=== PATIENT | male | born 1945 | race Two or more races ===

== ENCOUNTER 2017-04-23 19:38 | Inpatient (IN) | payer MEDICARE, OTHER ==
[~2017-04-23] VITALS: Ht 170.2 cm; Wt 41.7 kg
[2017-04-23 19:38] VITALS: BP 115/57
[2017-04-23] MEDS ORDERED: Albuterol ud Inhalation HHN ONE (20:15)
[2017-04-23] MEDS ORDERED: Ipratropium 0.02% Inh Soln 2.5ml UD HHN ONE (20:15)
--- NOTE | 2017-04-23 21:05 | Emergency Room Report ---
History of Present Illness General Chief Complaint: Upper Respiratory Illness Source: Patient, EMS Present Illness HPI Patient is sent in for productive cough and dyspnea. The patient has dementia and is not a good historian. Post stroke with hemiparesis. Denies pain at this time. States he is thirsty. No dysuria or vomiting (veracity questionable). Allergies: Coded Allergies: No Known Allergies (Unverified , 04/23/17) Patient History Limited by: medical condition Past Medical History: see triage record, CVA/TIA Social History: Reports: smoking - prior Social History Narrative SNF Reviewed Nursing Documentation: PMH: Agreed, PSxH: Agreed Nursing Documentation-PMH Hx Hypertension: Yes Hx Cerebrovascular Accident: Yes - hemiparesis(right side) Review of Systems All Other Systems: limited Physical Exam Vital Signs Date Time Temp Pulse Resp B/P (MAP) Pulse Ox O2 Delivery O2 Flow Rate FiO2 04/23/17 19:34 98.8 96 18 115/57 98 Room Air Sp02 EP Interpretation: reviewed, normal General Appearance: no apparent distress, thin, other - short stature, Chronically Ill Head: normocephalic Eyes: bilateral eye normal inspection, bilateral eye PERRL ENT: moist mucus membranes - poor dentition Neck: supple Respiratory: no respiratory distress, crackles - R base Cardiovascular #1: regular rate, rhythm Cardiovascular #2: 2+ radial (R) Gastrointestinal: normal inspection, normal bowel sounds, non tender, no mass, non-distended Musculoskeletal: back normal, other - atrophy L arm Neurologic: alert, responsive, DTRs symmetric, sensory intact, motor weakness - bilat but worse R Psychiatric: other - some perseveration and possible confabulation, but reports when he has pain and is thirsty Skin: normal inspection, warm/dry Medical Decision Making Diagnostic Impression: Primary Impression: Pneumonia Qualified Codes: J18.1 - Lobar pneumonia, unspecified organism Additional Impressions: Sepsis Qualified Codes: A41.9 - Sepsis, unspecified organism Status post stroke Dementia Qualified Codes: F03.90 - Unspecified dementia without behavioral disturbance ER Course Patient presents with productive cough. Ddx: pneumonia, bronchitis, COPD, sepsis amongst others. Evaluation with EKG, CXR, labs including BC and lactate. EKG without injury. CXR with some COPD and R basilar infiltrate. Labs with elevated WBC, lactate, min elevated glucose. IV hydration ordered and antibiotics. Improved with treatment however, needs continued IV antibiotics and follow for sepsis. Admit med Dr. Brock (Dr. Terry operations advisor.) Laboratory Tests Test 04/23/17 21:28 04/23/17 22:38 04/23/17 23:20 White Blood Count 26.6 K/UL (4.8-10.8) *H Red Blood Count 4.48 M/UL (4.70-6.10) L Hemoglobin 10.5 G/DL (14.2-18.0) L Hematocrit 36.1 % (42.0-52.0) L Mean Corpuscular Volume 81 FL (80-99) Mean Corpuscular Hemoglobin 23.4 PG (27.0-31.0) L Mean Corpuscular Hemoglobin Concent 29.1 G/DL (32.0-36.0) L Red Cell Distribution Width 15.6 % (11.6-14.8) H Platelet Count 456 K/UL (150-450) H Mean Platelet Volume 7.2 FL (6.5-10.1) Neutrophils (%) (Auto) % (45.0-75.0) Lymphocytes (%) (Auto) % (20.0-45.0) Monocytes (%) (Auto) % (1.0-10.0) Eosinophils (%) (Auto) % (0.0-3.0) Basophils (%) (Auto) % (0.0-2.0) Differential Total Cells Counted 100 Neutrophils % (Manual) 78 % (45-75) H Lymphocytes % (Manual) 11 % (20-45) L Monocytes % (Manual) 9 % (1-10) Eosinophils % (Manual) 0 % (0-3) Basophils % (Manual) 0 % (0-2) Band Neutrophils 2 % (0-8) Platelet Estimate Increased H Platelet Morphology Normal Hypochromasia 1+ Anisocytosis 1+ Prothrombin Time 10.0 SEC (9.30-11.50) Prothrombin Time INR 1.0 (0.9-1.1) PTT 33 SEC (23-33) Sodium Level 135 MMOL/L (136-145) L Potassium Level 4.3 MMOL/L (3.5-5.1) Chloride Level 97 MMOL/L (98-107) L Carbon Dioxide Level 28 MMOL/L (21-32) Anion Gap 10 mmol/L (5-15) Blood Urea Nitrogen 29 mg/dL (7-18) H Creatinine 0.9 MG/DL (0.55-1.30) Estimate Glomerular Filtration Rate mL/min (>60) Glucose Level 157 MG/DL (74-106) H Lactic Acid Level 3.00 mmol/L (0.66-2.22) H 2.00 mmol/L (0.66-2.22) Calcium Level 9.5 MG/DL (8.5-10.1) Total Bilirubin 0.3 MG/DL (0.2-1.0) Aspartate Amino Transferase (AST) 64 U/L (15-37) H Alanine Aminotransferase (ALT) 34 U/L (12-78) Alkaline Phosphatase 115 U/L (46-116) Total Creatine Kinase 1998 U/L (26-308) H Troponin I 0.000 ng/mL (0.000-0.056) Pro-B-Type Natriuretic Peptide 1743 pg/mL (0-125) H Total Protein 9.1 G/DL (6.4-8.2) H Albumin 2.6 G/DL (3.4-5.0) L Globulin 6.5 g/dL Albumin/Globulin Ratio 0.4 (1.0-2.7) L Urine Color Yellow Urine Appearance Clear Urine pH 5 (4.5-8.0) Urine Specific [place] 1.020 (1.005-1.035) Urine Protein Negative (NEGATIVE) Urine Glucose (UA) Negative (NEGATIVE) Urine Ketones 1+ (NEGATIVE) H Urine Occult Blood 2+ (NEGATIVE) H Urine Nitrite Negative (NEGATIVE) Urine Bilirubin Negative (NEGATIVE) Urine Urobilinogen 1 MG/DL (0.0-1.0) H Urine Leukocyte Esterase 1+ (NEGATIVE) H Urine RBC 5-10 /HPF (0 - 0) H Urine WBC 0-2 /HPF (0 - 0) Urine Squamous Epithelial Cells Few /LPF (NONE/OCC) Urine Bacteria Few /HPF (NONE) Urine Mucus Few /LPF (NONE/OCC) H Microbiology Date/Time Source Procedure Growth Status 04/23/17 21:28 Nasal Nares Influenza Types A,B Antigen (LUCIO) - Final Complete EKG Diagnostic Results Rate: normal Rhythm: NSR ST Segments: no acute changes Rhythm Strip Diag. Results EP Interpretation: yes Rhythm: NSR, no PVC's, no ectopy Chest X-Ray Diagnostic Results Chest X-Ray Diagnostic Results : Chest X-Ray Ordered: Yes # of Views/Limited/Complete: 1 View Indication: Other EP Interpretation: Yes Interpretation: no effusion, no pneumothorax, other - R infiltrate Impression: Other Electronically Signed by: Haile Richards MD Last Vital Signs Date Time Temp Pulse Resp B/P (MAP) Pulse Ox O2 Delivery O2 Flow Rate FiO2 04/24/17 02:30 98.7 103 14 119/55 97 Room Air 21 Status: improved Disposition: ADMITTED INPATIENT Condition: Serious Haile Richards M.D. Apr 23, 2017 21:05
[2017-04-23 21:38] VITALS: BP 121/55
[2017-04-23 21:53] LABS: HEMATOCRIT 36.1 % (42.0-52.0); HEMOGLOBIN 10.5 G/DL (14.2-18.0); MEAN CORPUSCULAR VOLUME 81 FL (80-99); PLATELET COUNT 456 K/UL (150-450); RED BLOOD COUNT 4.48 M/UL (4.70-6.10); RED CELL DISTRIBUTION WIDTH 15.6 % (11.6-14.8)
[2017-04-23 21:57] LABS: WHITE BLOOD COUNT 26.6 K/UL (4.8-10.8)
[2017-04-23 22:04] LABS: ANION GAP 10 mmol/L (5-15); BLOOD UREA NITROGEN 29 mg/dL (7-18); CALCIUM 9.5 MG/DL (8.5-10.1); CARBON DIOXIDE 28 MMOL/L (21-32); CHLORIDE 97 MMOL/L (98-107); CREATININE 0.9 MG/DL (0.55-1.30); POTASSIUM 4.3 MMOL/L (3.5-5.1); SODIUM 135 MMOL/L (136-145)
[2017-04-23] MEDS ORDERED: cefTRIAXone 1 GM in NS 55 ML IVPB ONE (22:15)
[2017-04-23 22:22] LABS: ALANINE AMINOTRANSFERASE 34 U/L (12-78); ALBUMIN 2.6 G/DL (3.4-5.0); ALBUMIN/GLOBULIN RATIO 0.4 (1.0-2.7); ALKALINE PHOSPHATASE 115 U/L (46-116); ASPARTATE AMINO TRANSFERASE 64 U/L (15-37); BILIRUBIN,TOTAL 0.3 MG/DL (0.2-1.0); CREATINE KINASE 1998 U/L (26-308)
[2017-04-23 23:05] LABS: APPEARANCE,URINE CLEAR; BILIRUBIN, URINE NEGATIVE (NEGATIVE); GLUCOSE, URINE (UA) NEGATIVE (NEGATIVE); KETONES,URINE 1+ (NEGATIVE); LEUKOCYTE ESTERASE ,URINE 1+ (NEGATIVE); NITRITE,URINE NEGATIVE (NEGATIVE); PH,URINE 5 (4.5-8.0); PROTEIN,URINE NEGATIVE (NEGATIVE); UROBILINOGEN,URINE 1 MG/DL (0.0-1.0)
[2017-04-23 23:13] LABS: COLOR,URINE YELLOW
[2017-04-23 23:38] VITALS: BP 109/60
[2017-04-24 01:38] VITALS: BP 111/50
[2017-04-24] MEDS ORDERED: KEFLEX500 MG ORAL (01:39)
[2017-04-24] MEDS ORDERED: PRAVASTATIN SOD20 M1 ORAL (01:39)
[2017-04-24] MEDS ORDERED: ZINC SULFATE220 M1 ORAL (01:39)
[2017-04-24] MEDS ORDERED: ACETAMINOPHEN325 M1 ORAL (01:39)
[2017-04-24] MEDS ORDERED: SEROQUEL25 MG ORAL (01:39)
[2017-04-24] MEDS ORDERED: NORCO 10-325 T1 EACH ORAL (01:39)
[2017-04-24] MEDS ORDERED: TRAZODONE HCL150 MG ORAL (01:39)
[2017-04-24] MEDS ORDERED: ASPIRIN81 MG ORAL (01:39)
[2017-04-24] MEDS ORDERED: AMLODIPINE BESYL5 MG ORAL (01:39)
[2017-04-24] MEDS ORDERED: MULTIVITAMINS1 EAC8 ORAL (01:39)
[2017-04-24] MEDS ORDERED: NAMENDA10 MG ORAL (01:39)
[2017-04-24] MEDS ORDERED: DEPAKOTE ER500 MG ORAL (01:39)
[2017-04-24] MEDS ORDERED: BACLOFEN10 MG ORAL (01:39)
[2017-04-24] MEDS ORDERED: ZYPREXA5 MG ORAL (01:39)
[2017-04-24] MEDS ORDERED: PANTOPRAZOLE SO40 MG ORAL (01:39)
[2017-04-24] MEDS ORDERED: MIRTAZAPINE15 M3 ORAL (01:39)
[2017-04-24] MEDS ORDERED: VITAMIN C500 M1 ORAL (01:39)
[2017-04-24] MEDS ORDERED: DOCUSATE SODIU100 MG ORAL (01:39)
[2017-04-24 04:00] VITALS: BP 125/66
[2017-04-24] MEDS ORDERED: Morphine Sulfate 2mg/ml Inj IM PRN (04:00)
[2017-04-24] MEDS ORDERED: Albuterol/Ipratropium 3ml neb HHN PRN (04:00)
[2017-04-24] MEDS ORDERED: D5 1/2NS 1,000 ML IV SCH (05:00)
[2017-04-24 08:00] VITALS: BP 92/50
[2017-04-24] MEDS: Memantine 10mg tab ORAL SCH (09:28)
[2017-04-24] MEDS: Depakote ER 500mg tab ORAL SCH ×2 (09:28→21:31)
[2017-04-24] MEDS: Aspirin Baby 81mg ORAL SCH (09:28)
[2017-04-24] MEDS: Heparin 5000 units/ml inj SUBQ SCH ×2 (09:29→21:34)
--- NOTE | 2017-04-24 11:19 | Diagnostic Imaging Report ---
Indication: Cough Comparison: None A single view chest radiograph was obtained. Findings: Interstitial opacities demonstrated at the lung bases worse on the left. Bones are osteopenic. Heart size is normal. Aorta is calcified. IMPRESSION: Acute indeterminate interstitial disease of the lungs predominating in the lung bases. Please correlate clinically.
[2017-04-24 12:00] VITALS: BP 97/50
--- NOTE | 2017-04-24 12:00 | History and Physical ---
History of Present Illness General Date patient seen: Apr 24, 2017 Time patient seen: 12:00 Reason for Hospitalization: sepsis, pneumonia Present Illness HPI 72y/o male with pmh of dementia, CVA w/ R hemiparesis, HTN, HLD who presents with SOB and cough. Pt is poor historian. Per report, pt with SOB, congestion and cough for the past few days. No reports of fevers/chills, chest pain, abd pain, n/v/d/c. Pt also noted to be more lethargic and slightly more confused compared to baseline. In ED, pt noted to have WBC 26K and CXR w/ concern for pneumonia. Pt given IVFs , nebs, ceftriaxone and levaquin. Allergies: Coded Allergies: No Known Allergies (Unverified , 04/23/17) Medication History Scheduled Amlodipine Besylate* (Amlodipine Besylate*), 5 MG ORAL DAILY, (Reported) Ascorbic Acid* (Vitamin C*), 500 MG ORAL DAILY, (Reported) Aspirin* (Aspirin*), 81 MG ORAL DAILY, (Reported) Baclofen* (Baclofen*), 10 MG ORAL THREE TIMES A DAY, (Reported) Cephalexin* (Keflex*), 500 MG ORAL QID, (Reported) Divalproex Sodium* (Depakote Er*), 500 MG ORAL EVERY 12 HOURS, (Reported) Docusate Sodium* (Docusate Sodium*), 100 MG ORAL TWICE A DAY, (Reported) Memantine Hcl* (Namenda*), 10 MG ORAL DAILY, (Reported) Mirtazapine* (Mirtazapine*), 15 MG ORAL BEDTIME, (Reported) Multivitamin With Minerals (Multivitamins With Minerals*), 1 TAB ORAL DAILY, ( Reported) Olanzapine* (Zyprexa*), 5 MG ORAL QHS, (Reported) Pantoprazole* (Pantoprazole*), 40 MG ORAL DAILY, (Reported) Pravastatin Sod* (Pravastatin Sod*), 20 MG ORAL BEDTIME, (Reported) Quetiapine Fumarate* (Seroquel*), 25 MG ORAL THREE TIMES A DAY, (Reported) Trazodone* (Trazodone*), 150 MG ORAL BEDTIME, (Reported) Zinc Sulfate (Zinc Sulfate*), 220 MG ORAL DAILY, (Reported) Scheduled PRN Acetaminophen* (Acetaminophen 325MG Tablet*), 650 MG ORAL Q6H PRN for For Pain, (Reported) Hydrocodone Bit/Acetaminophen 10-325* ([place] 10-325*), 1 TAB ORAL Q6H PRN for For Pain, (Reported) Patient History Healthcare decision maker Resuscitation status Full Code Advanced Directive on File Past Medical/Surgical History Past Medical/Surgical History: (1) Status post CVA (2) Dementia (3) HTN (hypertension) (4) HLD (hyperlipidemia) Social History Social History: (1) lives at [facility] Review of Systems Constitutional: Reports: malaise, weakness Eye: Reports: no symptoms ENT: Reports: no symptoms Respiratory: Reports: cough, shortness of breath Cardiovascular: Reports: no symptoms Gastrointestinal: Reports: no symptoms Genitourinary: Reports: no symptoms Musculoskeletal: Reports: no symptoms Skin: Reports: no symptoms Psychiatric: Reports: no symptoms Neurological: Reports: no symptoms Endocrine: Reports: no symptoms Hematologic/Lymphatic: Reports: no symptoms Physical Exam Physical Exam Narrative General: alert, cooperative, no distress, appears stated age, thin Head: normocephalic, without obvious abnormality, atraumatic Eyes: conjunctivae/corneas clear. PERRL, EOM's intact Throat: lips, mucosa, and tongue normal. MMM Neck: supple, symmetrical, trachea midline, and no JVD Lungs: +rhonchi b/l and decreased breath sounds Heart: regular rate and rhythm, S1, S2 normal, no murmur, click, rub or gallop Abdomen: soft, non-tender, non-distended, bowel sounds normal Extremities: extremities normal, atraumatic, no cyanosis or edema Pulses: 2+ and symmetric Skin: skin color, texture, turgor normal; no rashes or lesions Neurologic: grossly normal, no focal deficits Last 24 Hour Vital Signs Date Time Temp Pulse Resp B/P (MAP) Pulse Ox O2 Delivery O2 Flow Rate FiO2 04/24/17 09:00 106 92/50 04/24/17 08:00 97.8 106 18 92/50 95 04/24/17 07:46 18 16 Room Air 04/24/17 04:00 93 04/24/17 04:00 97.9 107 16 125/66 95 04/24/17 02:30 98.7 103 14 119/55 97 Room Air 21 04/24/17 01:38 98.7 97 17 111/50 95 Room Air 04/23/17 23:38 98.8 98 19 109/60 99 Room Air 04/23/17 21:38 98.7 97 17 121/55 98 Room Air 04/23/17 21:30 100 18 97 Room Air 21 04/23/17 21:20 36 04/23/17 21:20 98 22 Room Air 21 04/23/17 21:20 95 20 93 Room Air 21 04/23/17 19:38 98.8 94 18 115/57 98 Room Air 04/23/17 19:38 94 18 Room Air 04/23/17 19:34 98.8 96 18 115/57 98 Room Air Intake and Output 04/23/17 04/24/17 19:00 07:00 Intake Total 2200 ml Balance 2200 ml Intake IV Total 2200 ml # Voids 3 # Bowel Movements 1 Laboratory Tests Test 04/23/17 21:28 04/23/17 22:38 04/23/17 23:20 White Blood Count 26.6 K/UL (4.8-10.8) *H Red Blood Count 4.48 M/UL (4.70-6.10) L Hemoglobin 10.5 G/DL (14.2-18.0) L Hematocrit 36.1 % (42.0-52.0) L Mean Corpuscular Volume 81 FL (80-99) Mean Corpuscular Hemoglobin 23.4 PG (27.0-31.0) L Mean Corpuscular Hemoglobin Concent 29.1 G/DL (32.0-36.0) L Red Cell Distribution Width 15.6 % (11.6-14.8) H Platelet Count 456 K/UL (150-450) H Mean Platelet Volume 7.2 FL (6.5-10.1) Neutrophils (%) (Auto) % (45.0-75.0) Lymphocytes (%) (Auto) % (20.0-45.0) Monocytes (%) (Auto) % (1.0-10.0) Eosinophils (%) (Auto) % (0.0-3.0) Basophils (%) (Auto) % (0.0-2.0) Differential Total Cells Counted 100 Neutrophils % (Manual) 78 % (45-75) H Lymphocytes % (Manual) 11 % (20-45) L Monocytes % (Manual) 9 % (1-10) Eosinophils % (Manual) 0 % (0-3) Basophils % (Manual) 0 % (0-2) Band Neutrophils 2 % (0-8) Platelet Estimate Increased H Platelet Morphology Normal Hypochromasia 1+ Anisocytosis 1+ Prothrombin Time 10.0 SEC (9.30-11.50) Prothromb Time International Ratio 1.0 (0.9-1.1) Activated Partial Thromboplast Time 33 SEC (23-33) Sodium Level 135 MMOL/L (136-145) L Potassium Level 4.3 MMOL/L (3.5-5.1) Chloride Level 97 MMOL/L (98-107) L Carbon Dioxide Level 28 MMOL/L (21-32) Anion Gap 10 mmol/L (5-15) Blood Urea Nitrogen 29 mg/dL (7-18) H Creatinine 0.9 MG/DL (0.55-1.30) Estimat Glomerular Filtration Rate mL/min (>60) Glucose Level 157 MG/DL (74-106) H Lactic Acid Level 3.00 mmol/L (0.66-2.22) H 2.00 mmol/L (0.66-2.22) Calcium Level 9.5 MG/DL (8.5-10.1) Total Bilirubin 0.3 MG/DL (0.2-1.0) Aspartate Amino Transf (AST/SGOT) 64 U/L (15-37) H Alanine Aminotransferase (ALT/SGPT) 34 U/L (12-78) Alkaline Phosphatase 115 U/L (46-116) Total Creatine Kinase 1998 U/L (26-308) H Troponin I 0.000 ng/mL (0.000-0.056) Pro-B-Type Natriuretic Peptide 1743 pg/mL (0-125) H Total Protein 9.1 G/DL (6.4-8.2) H Albumin 2.6 G/DL (3.4-5.0) L Globulin 6.5 g/dL Albumin/Globulin Ratio 0.4 (1.0-2.7) L Urine Color Yellow Urine Appearance Clear Urine pH 5 (4.5-8.0) Urine Specific [place] 1.020 (1.005-1.035) Urine Protein Negative (NEGATIVE) Urine Glucose (UA) Negative (NEGATIVE) Urine Ketones 1+ (NEGATIVE) H Urine Occult Blood 2+ (NEGATIVE) H Urine Nitrite Negative (NEGATIVE) Urine Bilirubin Negative (NEGATIVE) Urine Urobilinogen 1 MG/DL (0.0-1.0) H Urine Leukocyte Esterase 1+ (NEGATIVE) H Urine RBC 5-10 /HPF (0 - 0) H Urine WBC 0-2 /HPF (0 - 0) Urine Squamous Epithelial Cells Few /LPF (NONE/OCC) Urine Bacteria Few /HPF (NONE) Urine Mucus Few /LPF (NONE/OCC) H Microbiology Date/Time Source Procedure Growth Status 04/23/17 21:28 Nasal Nares Influenza Types A,B Antigen (LUCIO) - Final Complete Height (Feet): 5 Height (Inches): 7.00 Weight (Pounds): 92 Medications Current Medications Medications (Trade) Dose Ordered Sig/Marya Route PRN Reason Start Time Stop Time Status Last Admin Dose Admin Albuterol/ Ipratropium (Albuterol/ Ipratropium) 3 ml Q4H PRN HHN Shortness of Breath 04/24/17 04:00 04/29/17 03:59 Amlodipine Besylate (Norvasc) 5 mg DAILY ORAL 04/24/17 09:00 05/24/17 08:59 Aspirin (ASA) 81 mg DAILY ORAL 04/24/17 09:00 05/24/17 08:59 04/24/17 09:28 Ceftriaxone Sodium 1 gm/ Dextrose 55 ml @ 110 mls/hr Q24H IVPB 04/24/17 22:00 05/01/17 21:59 Divalproex Sodium (Depakote ER) 500 mg EVERY 12 HOURS ORAL 04/24/17 09:00 05/24/17 08:59 04/24/17 09:28 Heparin Sodium (Porcine) (Heparin 5000 units/ml) 5,000 units EVERY 12 HOURS SUBQ 04/24/17 09:00 05/24/17 08:59 04/24/17 09:29 Levofloxacin 150 ml @ 100 mls/hr Q24H IVPB 04/24/17 23:00 05/01/17 22:59 Memantine (Namenda) 10 mg DAILY ORAL 04/24/17 09:00 05/24/17 08:59 04/24/17 09:28 Morphine Sulfate (Morphine Sulfate) 2 mg Q4H PRN IM For Pain 04/24/17 04:00 05/01/17 03:59 Pantoprazole (Protonix) 40 mg DAILY ORAL 04/24/17 09:00 05/24/17 08:59 04/24/17 09:28 Pravastatin Sodium (Pravachol) 20 mg BEDTIME ORAL 04/24/17 21:00 05/24/17 20:59 Sodium Chloride 1,000 ml @ 75 mls/hr [id number] IV 04/24/17 11:15 05/24/17 11:14 04/24/17 11:34 Assessment/Plan Problem List: (1) HCAP (healthcare-associated pneumonia) ICD Codes: J18.9 - Pneumonia, unspecified organism SNOMED: 706855912 (2) Sepsis ICD Codes: A41.9 - Sepsis, unspecified organism SNOMED: 49430646 Qualifiers: Qualified Codes: A41.9 - Sepsis, unspecified organism (3) Toxic metabolic encephalopathy ICD Codes: G92 - Toxic encephalopathy SNOMED: 203996097 (4) Dementia ICD Codes: F03.90 - Unspecified dementia without behavioral disturbance SNOMED: 82836755 Qualifiers: Qualified Codes: F03.90 - Unspecified dementia without behavioral disturbance (5) Status post CVA ICD Codes: Z86.73 - Personal history of transient ischemic attack (TIA), and cerebral infarction without residual deficits SNOMED: 995066993 (6) HTN (hypertension) ICD Codes: I10 - Essential (primary) hypertension SNOMED: 16966330 (7) HLD (hyperlipidemia) ICD Codes: E78.5 - Hyperlipidemia, unspecified SNOMED: 41008672 (8) Severe protein-calorie malnutrition ICD Codes: E43 - Unspecified severe protein-calorie malnutrition SNOMED: 521883678 Status: stable Assessment/Plan Admit inpt ID and pulm consulted Change to vanco, zosyn and azithro per ID F/u cultures Monitor CXR Duonebs ATC and PRN Mucinex Swallow eval cargo agent consult mIVFs Trend CBC, BMP Pain control, bowel regimen Supportive care DVT Prophylaxis: SCD, HSQ Code Status: Full Hospital Classification Declaration: Based on this initial evaluation, and depending on the patient's clinical course, I anticipate that this patient will require hospitalization for 2-3 days for sepsis, PNA and close respiratory/ hemodynamic monitoring. Disposition: Once the patient is stable to leave the hospital, I anticipate the patient will likely be discharged to the following environment: back to SNF I spent 70 minutes on this patient's case, and >50% was dedicated to counseling and/or care coordination. Discussed with patient/family, nursing staff, SW/CM, ID, pulm regarding clinical status, treatment course, and disposition planning. Time of note may not reflect time of encounter. Padmini Demarco M.D. Apr 24, 2017 12:00
--- NOTE | 2017-04-24 14:57 | Consultation ---
History of Present Illness General Date patient seen: Apr 24, 2017 Chief Complaint: Upper Respiratory Illness Referring physician: tatyana Reason for Consultation: dyspnea Present Illness HPI 68-year-old gentleman with a history dementia, stroke with right-sided paraplegia presented with chief complaint of malaise, altered mental status and pneumonia on the chest x-ray for last couple days. No fever or chills. No nausea no vomiting. Does have a cough. Pt complaining of bilateral knee pain. looks thin and chronically ill. Allergies: Coded Allergies: No Known Allergies (Unverified , 04/23/17) Medication History Scheduled Amlodipine Besylate* (Amlodipine Besylate*), 5 MG ORAL DAILY, (Reported) Ascorbic Acid* (Vitamin C*), 500 MG ORAL DAILY, (Reported) Aspirin* (Aspirin*), 81 MG ORAL DAILY, (Reported) Baclofen* (Baclofen*), 10 MG ORAL THREE TIMES A DAY, (Reported) Cephalexin* (Keflex*), 500 MG ORAL QID, (Reported) Divalproex Sodium* (Depakote Er*), 500 MG ORAL EVERY 12 HOURS, (Reported) Docusate Sodium* (Docusate Sodium*), 100 MG ORAL TWICE A DAY, (Reported) Memantine Hcl* (Namenda*), 10 MG ORAL DAILY, (Reported) Mirtazapine* (Mirtazapine*), 15 MG ORAL BEDTIME, (Reported) Multivitamin With Minerals (Multivitamins With Minerals*), 1 TAB ORAL DAILY, ( Reported) Olanzapine* (Zyprexa*), 5 MG ORAL QHS, (Reported) Pantoprazole* (Pantoprazole*), 40 MG ORAL DAILY, (Reported) Pravastatin Sod* (Pravastatin Sod*), 20 MG ORAL BEDTIME, (Reported) Quetiapine Fumarate* (Seroquel*), 25 MG ORAL THREE TIMES A DAY, (Reported) Trazodone* (Trazodone*), 150 MG ORAL BEDTIME, (Reported) Zinc Sulfate (Zinc Sulfate*), 220 MG ORAL DAILY, (Reported) Scheduled PRN Acetaminophen* (Acetaminophen 325MG Tablet*), 650 MG ORAL Q6H PRN for For Pain, (Reported) Hydrocodone Bit/Acetaminophen 10-325* ([place] 10-325*), 1 TAB ORAL Q6H PRN for For Pain, (Reported) Patient History Healthcare decision maker Resuscitation status Full Code Advanced Directive on File Past Medical/Surgical History Past Medical/Surgical History: (1) Dementia (2) Status post stroke Review of Systems All Other Systems: negative except mentioned in HPI Physical Exam General Appearance: WD/WN, no apparent distress Lines, tubes and drains: peripheral HEENT: normocephalic, atraumatic Neck: non-tender, normal alignment Respiratory/Chest: chest wall non-tender, lungs clear Cardiovascular/Chest: normal peripheral pulses, normal rate Abdomen: normal bowel sounds, non tender Genitourinary/Rectal: normal genital exam Extremities: normal range of motion, non-tender Last 24 Hour Vital Signs Date Time Temp Pulse Resp B/P (MAP) Pulse Ox O2 Delivery O2 Flow Rate FiO2 04/24/17 12:00 97.7 105 18 97/50 95 04/24/17 09:00 106 92/50 04/24/17 08:00 97.8 106 18 92/50 95 04/24/17 07:46 18 16 Room Air 04/24/17 04:00 93 04/24/17 04:00 97.9 107 16 125/66 95 04/24/17 02:30 98.7 103 14 119/55 97 Room Air 21 04/24/17 01:38 98.7 97 17 111/50 95 Room Air 04/23/17 23:38 98.8 98 19 109/60 99 Room Air 04/23/17 21:38 98.7 97 17 121/55 98 Room Air 04/23/17 21:30 100 18 97 Room Air 21 04/23/17 21:20 36 04/23/17 21:20 98 22 Room Air 21 04/23/17 21:20 95 20 93 Room Air 21 04/23/17 19:38 98.8 94 18 115/57 98 Room Air 04/23/17 19:38 94 18 Room Air 04/23/17 19:34 98.8 96 18 115/57 98 Room Air Intake and Output 04/23/17 04/24/17 19:00 07:00 Intake Total 2200 ml Balance 2200 ml IV Total 2200 ml # Voids 3 # Bowel Movements 1 Laboratory Tests Test 04/23/17 21:28 04/23/17 22:38 04/23/17 23:20 White Blood Count 26.6 K/UL (4.8-10.8) *H Red Blood Count 4.48 M/UL (4.70-6.10) L Hemoglobin 10.5 G/DL (14.2-18.0) L Hematocrit 36.1 % (42.0-52.0) L Mean Corpuscular Volume 81 FL (80-99) Mean Corpuscular Hemoglobin 23.4 PG (27.0-31.0) L Mean Corpuscular Hemoglobin Concent 29.1 G/DL (32.0-36.0) L Red Cell Distribution Width 15.6 % (11.6-14.8) H Platelet Count 456 K/UL (150-450) H Mean Platelet Volume 7.2 FL (6.5-10.1) Neutrophils (%) (Auto) % (45.0-75.0) Lymphocytes (%) (Auto) % (20.0-45.0) Monocytes (%) (Auto) % (1.0-10.0) Eosinophils (%) (Auto) % (0.0-3.0) Basophils (%) (Auto) % (0.0-2.0) Differential Total Cells Counted 100 Neutrophils % (Manual) 78 % (45-75) H Lymphocytes % (Manual) 11 % (20-45) L Monocytes % (Manual) 9 % (1-10) Eosinophils % (Manual) 0 % (0-3) Basophils % (Manual) 0 % (0-2) Band Neutrophils 2 % (0-8) Platelet Estimate Increased H Platelet Morphology Normal Hypochromasia 1+ Anisocytosis 1+ Prothrombin Time 10.0 SEC (9.30-11.50) Prothromb Time International Ratio 1.0 (0.9-1.1) Activated Partial Thromboplast Time 33 SEC (23-33) Sodium Level 135 MMOL/L (136-145) L Potassium Level 4.3 MMOL/L (3.5-5.1) Chloride Level 97 MMOL/L (98-107) L Carbon Dioxide Level 28 MMOL/L (21-32) Anion Gap 10 mmol/L (5-15) Blood Urea Nitrogen 29 mg/dL (7-18) H Creatinine 0.9 MG/DL (0.55-1.30) Estimat Glomerular Filtration Rate mL/min (>60) Glucose Level 157 MG/DL (74-106) H Lactic Acid Level 3.00 mmol/L (0.66-2.22) H 2.00 mmol/L (0.66-2.22) Calcium Level 9.5 MG/DL (8.5-10.1) Total Bilirubin 0.3 MG/DL (0.2-1.0) Aspartate Amino Transf (AST/SGOT) 64 U/L (15-37) H Alanine Aminotransferase (ALT/SGPT) 34 U/L (12-78) Alkaline Phosphatase 115 U/L (46-116) Total Creatine Kinase 1998 U/L (26-308) H Troponin I 0.000 ng/mL (0.000-0.056) Pro-B-Type Natriuretic Peptide 1743 pg/mL (0-125) H Total Protein 9.1 G/DL (6.4-8.2) H Albumin 2.6 G/DL (3.4-5.0) L Globulin 6.5 g/dL Albumin/Globulin Ratio 0.4 (1.0-2.7) L Urine Color Yellow Urine Appearance Clear Urine pH 5 (4.5-8.0) Urine Specific [place] 1.020 (1.005-1.035) Urine Protein Negative (NEGATIVE) Urine Glucose (UA) Negative (NEGATIVE) Urine Ketones 1+ (NEGATIVE) H Urine Occult Blood 2+ (NEGATIVE) H Urine Nitrite Negative (NEGATIVE) Urine Bilirubin Negative (NEGATIVE) Urine Urobilinogen 1 MG/DL (0.0-1.0) H Urine Leukocyte Esterase 1+ (NEGATIVE) H Urine RBC 5-10 /HPF (0 - 0) H Urine WBC 0-2 /HPF (0 - 0) Urine Squamous Epithelial Cells Few /LPF (NONE/OCC) Urine Bacteria Few /HPF (NONE) Urine Mucus Few /LPF (NONE/OCC) H Microbiology Date/Time Source Procedure Growth Status 04/23/17 21:28 Nasal Nares Influenza Types A,B Antigen (LUCIO) - Final Complete Height (Feet): 5 Height (Inches): 7.00 Weight (Pounds): 92 Medications Current Medications Medications (Trade) Dose Ordered Sig/Marya Route PRN Reason Start Time Stop Time Status Last Admin Dose Admin Albuterol/ Ipratropium (Albuterol/ Ipratropium) 3 ml Q4H PRN N Shortness of Breath 04/24/17 04:00 04/29/17 03:59 Amlodipine Besylate (Norvasc) 5 mg DAILY ORAL 04/24/17 09:00 05/24/17 08:59 Aspirin (ASA) 81 mg DAILY ORAL 04/24/17 09:00 05/24/17 08:59 04/24/17 09:28 Ceftriaxone Sodium 1 gm/ Dextrose 55 ml @ 110 mls/hr Q24H IVPB 04/24/17 22:00 05/01/17 21:59 Divalproex Sodium (Depakote ER) 500 mg EVERY 12 HOURS ORAL 04/24/17 09:00 05/24/17 08:59 04/24/17 09:28 Heparin Sodium (Porcine) (Heparin 5000 units/ml) 5,000 units EVERY 12 HOURS SUBQ 04/24/17 09:00 05/24/17 08:59 04/24/17 09:29 Levofloxacin 150 ml @ 100 mls/hr Q24H IVPB 04/24/17 23:00 05/01/17 22:59 Memantine (Namenda) 10 mg DAILY ORAL 04/24/17 09:00 05/24/17 08:59 04/24/17 09:28 Morphine Sulfate (Morphine Sulfate) 2 mg Q4H PRN IM For Pain 04/24/17 04:00 05/01/17 03:59 Pantoprazole (Protonix) 40 mg DAILY ORAL 04/24/17 09:00 05/24/17 08:59 04/24/17 09:28 Pravastatin Sodium (Pravachol) 20 mg BEDTIME ORAL 04/24/17 21:00 05/24/17 20:59 Sodium Chloride 1,000 ml @ 75 mls/hr [id number] IV 04/24/17 11:15 05/24/17 11:14 04/24/17 11:34 Assessment/Plan Problem List: (1) Sepsis ICD Codes: A41.9 - Sepsis, unspecified organism SNOMED: 93169422 Qualifiers: Qualified Codes: A41.9 - Sepsis, unspecified organism (2) Pneumonia ICD Codes: J18.9 - Pneumonia, unspecified organism SNOMED: 909475167 Qualifiers: Qualified Codes: J18.1 - Lobar pneumonia, unspecified organism (3) Status post stroke ICD Codes: Z86.73 - Personal history of transient ischemic attack (TIA), and cerebral infarction without residual deficits SNOMED: 556505636 (4) Dementia ICD Codes: F03.90 - Unspecified dementia without behavioral disturbance SNOMED: 57087955 Qualifiers: Qualified Codes: F03.90 - Unspecified dementia without behavioral disturbance Assessment/Plan respiratory Rx. IV abx check cultures chest pt anemia w/u ENEDINA ERBOLLEDO Apr 24, 2017 14:57
--- NOTE | 2017-04-24 15:42 | Cardiology Report ---
APPROVED REPORT EKG Measurement Heart [id number] Normal sinus rhythm Possible Left atrial enlargement Abnormal ECG
[2017-04-24 16:00] VITALS: BP 108/50
[2017-04-24] MEDS ORDERED: HYDROcodone/Acetamin 10/325 tab ORAL PRN (16:45)
[2017-04-24] MEDS ORDERED: Norco 5mg/325mg tab ORAL PRN (16:45)
[2017-04-24] MEDS ORDERED: Morphine Sulfate 2mg/ml Inj IVP PRN (17:15)
--- NOTE | 2017-04-24 20:20 | Infectious Diseases Prog Note ---
Assessment/Plan Assessment/Plan Full consult dictated: A) 1) sepsis, pna, leukocytosis, aspiration risk 2) pmh noted 3) allergies - negative P) 1) zosyn, vancomycin, azithromycin 2) check sc, serology, labs, chest x-ray 3) thanks Subjective Allergies: Coded Allergies: No Known Allergies (Unverified , 04/23/17) Objective Vital Signs Last 24 Hour Vital Signs Date Time Temp Pulse Resp B/P (MAP) Pulse Ox O2 Delivery O2 Flow Rate FiO2 04/24/17 16:00 97.5 85 18 108/50 94 04/24/17 16:00 100 04/24/17 12:00 88 04/24/17 12:00 97.7 105 18 97/50 95 04/24/17 09:00 106 92/50 04/24/17 08:00 96 04/24/17 08:00 97.8 106 18 92/50 95 04/24/17 07:46 18 16 Room Air 04/24/17 04:00 93 04/24/17 04:00 97.9 107 16 125/66 95 04/24/17 02:30 98.7 103 14 119/55 97 Room Air 21 04/24/17 01:38 98.7 97 17 111/50 95 Room Air 04/23/17 23:38 98.8 98 19 109/60 99 Room Air 04/23/17 21:38 98.7 97 17 121/55 98 Room Air 04/23/17 21:30 100 18 97 Room Air 21 04/23/17 21:20 36 04/23/17 21:20 98 22 Room Air 21 04/23/17 21:20 95 20 93 Room Air 21 Height (Feet): 5 Height (Inches): 7.00 Weight (Pounds): 92 Microbiology Date/Time Source Procedure Growth Status 04/23/17 21:28 Nasal Nares Influenza Types A,B Antigen (LUCIO) - Final Complete Laboratory Tests Test 04/23/17 21:28 04/23/17 22:38 04/23/17 23:20 White Blood Count 26.6 K/UL (4.8-10.8) *H Red Blood Count 4.48 M/UL (4.70-6.10) L Hemoglobin 10.5 G/DL (14.2-18.0) L Hematocrit 36.1 % (42.0-52.0) L Mean Corpuscular Volume 81 FL (80-99) Mean Corpuscular Hemoglobin 23.4 PG (27.0-31.0) L Mean Corpuscular Hemoglobin Concent 29.1 G/DL (32.0-36.0) L Red Cell Distribution Width 15.6 % (11.6-14.8) H Platelet Count 456 K/UL (150-450) H Mean Platelet Volume 7.2 FL (6.5-10.1) Neutrophils (%) (Auto) % (45.0-75.0) Lymphocytes (%) (Auto) % (20.0-45.0) Monocytes (%) (Auto) % (1.0-10.0) Eosinophils (%) (Auto) % (0.0-3.0) Basophils (%) (Auto) % (0.0-2.0) Differential Total Cells Counted 100 Neutrophils % (Manual) 78 % (45-75) H Lymphocytes % (Manual) 11 % (20-45) L Monocytes % (Manual) 9 % (1-10) Eosinophils % (Manual) 0 % (0-3) Basophils % (Manual) 0 % (0-2) Band Neutrophils 2 % (0-8) Platelet Estimate Increased H Platelet Morphology Normal Hypochromasia 1+ Anisocytosis 1+ Prothrombin Time 10.0 SEC (9.30-11.50) Prothromb Time International Ratio 1.0 (0.9-1.1) Activated Partial Thromboplast Time 33 SEC (23-33) Sodium Level 135 MMOL/L (136-145) L Potassium Level 4.3 MMOL/L (3.5-5.1) Chloride Level 97 MMOL/L (98-107) L Carbon Dioxide Level 28 MMOL/L (21-32) Anion Gap 10 mmol/L (5-15) Blood Urea Nitrogen 29 mg/dL (7-18) H Creatinine 0.9 MG/DL (0.55-1.30) Estimat Glomerular Filtration Rate mL/min (>60) Glucose Level 157 MG/DL (74-106) H Lactic Acid Level 3.00 mmol/L (0.66-2.22) H 2.00 mmol/L (0.66-2.22) Calcium Level 9.5 MG/DL (8.5-10.1) Total Bilirubin 0.3 MG/DL (0.2-1.0) Aspartate Amino Transf (AST/SGOT) 64 U/L (15-37) H Alanine Aminotransferase (ALT/SGPT) 34 U/L (12-78) Alkaline Phosphatase 115 U/L (46-116) Total Creatine Kinase 1998 U/L (26-308) H Troponin I 0.000 ng/mL (0.000-0.056) Pro-B-Type Natriuretic Peptide 1743 pg/mL (0-125) H Total Protein 9.1 G/DL (6.4-8.2) H Albumin 2.6 G/DL (3.4-5.0) L Globulin 6.5 g/dL Albumin/Globulin Ratio 0.4 (1.0-2.7) L Urine Color Yellow Urine Appearance Clear Urine pH 5 (4.5-8.0) Urine Specific [place] 1.020 (1.005-1.035) Urine Protein Negative (NEGATIVE) Urine Glucose (UA) Negative (NEGATIVE) Urine Ketones 1+ (NEGATIVE) H Urine Occult Blood 2+ (NEGATIVE) H Urine Nitrite Negative (NEGATIVE) Urine Bilirubin Negative (NEGATIVE) Urine Urobilinogen 1 MG/DL (0.0-1.0) H Urine Leukocyte Esterase 1+ (NEGATIVE) H Urine RBC 5-10 /HPF (0 - 0) H Urine WBC 0-2 /HPF (0 - 0) Urine Squamous Epithelial Cells Few /LPF (NONE/OCC) Urine Bacteria Few /HPF (NONE) Urine Mucus Few /LPF (NONE/OCC) H Current Medications Medications (Trade) Dose Ordered Sig/Marya Route PRN Reason Start Time Stop Time Status Last Admin Dose Admin Acetaminophen/ Hydrocodone Bitart ([place] 10/325) 1 tab Q4H PRN ORAL Severe Pain if able to take or 04/24/17 16:45 05/01/17 16:44 Acetaminophen/ Hydrocodone Bitart ([place] 5/325) 1 tab Q4H PRN ORAL Moderate Pain (Pain Scale 4-6) 04/24/17 16:45 05/01/17 16:44 04/24/17 17:11 Albuterol/ Ipratropium (Albuterol/ Ipratropium) 3 ml Q4H PRN HHN Shortness of Breath 04/24/17 04:00 04/29/17 03:59 Amlodipine Besylate (Norvasc) 5 mg DAILY ORAL 04/24/17 09:00 05/24/17 08:59 Aspirin (ASA) 81 mg DAILY ORAL 04/24/17 09:00 05/24/17 08:59 04/24/17 09:28 Ceftriaxone Sodium 1 gm/ Dextrose 55 ml @ 110 mls/hr Q24H IVPB 04/24/17 22:00 05/01/17 21:59 Divalproex Sodium (Depakote ER) 500 mg EVERY 12 HOURS ORAL 04/24/17 09:00 05/24/17 08:59 04/24/17 09:28 Heparin Sodium (Porcine) (Heparin 5000 units/ml) 5,000 units EVERY 12 HOURS SUBQ 04/24/17 09:00 05/24/17 08:59 04/24/17 09:29 Levofloxacin 150 ml @ 100 mls/hr Q24H IVPB 04/24/17 23:00 05/01/17 22:59 Memantine (Namenda) 10 mg DAILY ORAL 04/24/17 09:00 05/24/17 08:59 04/24/17 09:28 Morphine Sulfate (Morphine Sulfate) 2 mg Q4H PRN IVP Severe Pain 04/24/17 17:15 05/01/17 17:14 Pantoprazole (Protonix) 40 mg DAILY ORAL 04/24/17 09:00 05/24/17 08:59 04/24/17 09:28 Pravastatin Sodium (Pravachol) 20 mg BEDTIME ORAL 04/24/17 21:00 05/24/17 20:59 Sodium Chloride 1,000 ml @ 75 mls/hr [id number] IV 04/24/17 11:15 05/24/17 11:14 04/24/17 11:34 OFE NGUYEN Apr 24, 2017 20:20
[2017-04-24] MEDS ORDERED: Azithromycin 250mg tab ORAL ONE (21:00)
[2017-04-24] MEDS ORDERED: cefTRIAXone 1 GM in D5W 55 ML IVPB SCH (22:00)
[2017-04-24] MEDS ORDERED: Vancomycin 750mg/NS 250ml 250 ML IVPB ONE (23:00)
--- NOTE | 2017-04-24 23:48 | Consultation ---
DATE OF CONSULTATION: 04/24/2017 INFECTIOUS DISEASE CONSULTATION CONSULTING PHYSICIAN: Bill Babin M.D. ATTENDING PHYSICIAN: Brandi Brock M.D. I was asked by Dr. Washington to see this patient. REASON FOR CONSULTATION: Pneumonia, sepsis. CHIEF COMPLAINT: The patient's chief complaint coming in to the hospital is pneumonia, sepsis. HISTORY OF PRESENT ILLNESS: This is a 72-year-old male, who is a very poor historian. He is alert, but somewhat confused. The patient presents to [facility] with congestion and shortness of breath. The patient has a history of stroke with right-sided paraplegia and has a history of dementia, at high risk for aspiration. The patient was admitted for pneumonia and sepsis and elevated white count. Infectious Disease consultation was requested. The patient also is at risk for healthcare-acquired pneumonia because I believe he comes from [facility] based on the records. The patient was on Zosyn, vancomycin, and azithromycin. Sputum culture and serology been ordered. MAR was noted. Orders were noted. Notes and records were reviewed. The patient is overall a poor historian. REVIEW OF SYSTEMS: CONSTITUTIONAL: The patient has generalized weakness and fatigue. He has no fevers. HEAD AND NECK: No thrush, dysphagia, or neck stiffness. CARDIAC: No chest pain or palpitations. No pressors. GASTROINTESTINAL: No nausea, vomiting, or diarrhea. No hemoptysis or secretions. No thrush or dysphagia. GENITOURINARY: He has no [place]. PULMONARY: Congestion, shortness of breath, and sputum production. SKIN: No rash or itching. EXTREMITIES: No extremity pain. NEUROLOGIC: No seizures. Wounds were reviewed. He has generalized weakness and fatigue also. PAST MEDICAL HISTORY: Includes history of following: The patient has a past medical history of stroke and right-sided weakness and paraplegia. The patient has a history of urinary tract infection, history of hemiplegia, history of weakness, history of dysphagia, chronic pain syndrome, gastroesophageal reflux disease, hypertension, hypertensive heart disease, hyperlipidemia, and dementia. He has history of CVA and TIA. ALLERGIES: No known drug allergies. No antibiotic allergies. FAMILY HISTORY: Noncontributory. Negative for exposure to tuberculosis or cancer. SOCIAL HISTORY: Negative for smoking, alcohol, or drug abuse at this time. MEDICATIONS: Upon reviewing the MAR, he is on the following medications. He is on Levaquin and Rocephin, which I discontinued. He is on pravastatin, Pravachol, morphine, and hydrocodone. He is on heparin, amlodipine, aspirin, divalproex, memantine, and pantoprazole. He is on albuterol treatments. Antibiotics been changed, Zosyn, vancomycin, and azithromycin. Outside medications also noted and reconciliated. PHYSICAL EXAMINATION: VITAL SIGNS: Temperature is 97.5, pulse rate as high as 105, saturation 100%, respiratory rate has been as high as 22, and blood pressure 108/50. Saturation 94% to 95%. GENERAL: Alert, responsive, no acute distress, seems to be confused. HEAD AND NECK: Oral exam, no thrush. Eye exam, no icterus. Normocephalic. No facial droop. No neck stiffness. Neck is supple. HEART: Regular. No gallop or murmur. ABDOMEN: Soft. Positive bowel sounds. Nontender. There is no diarrhea. LUNGS: Bilateral rhonchi and rales. SKIN: No rash. Wounds were reviewed, they do not look acutely infected. MUSCULOSKELETAL: No effusion. Legs without cellulitis. PERIPHERAL VASCULAR: No gangrene. LINES: Line sites without phlebitis. GENITOURINARY: No [place]. No CVA tenderness. NEUROLOGIC: Generalized weakness, responsive. LABORATORY AND DIAGNOSTIC DATA: Creatinine 0.9. LFTs were noted. CK is 1998. Creatinine 0.9. White count 26.6, hemoglobin 10.5, and platelet count 456,000. UA had 1+ leukocyte esterase and 5 to 10 RBCs, but 0 to 2 white cells. Chest x-ray shows acute interstitial disease of the lungs in the lung bases. Cultures are pending at this time. Serology for Legionella and mycoplasma have been ordered. Influenza is negative. Creatinine 0.9. ASSESSMENT AND PLAN: 1. The patient is septic with systemic inflammatory response syndrome criteria and elevated white count. The patient comes in with congestion and productive cough. The patient is at high risk for aspiration, healthcare-acquired pneumonia, and also for community-acquired pneumonia. The patient will be placed on Zosyn and vancomycin to cover MRSA, anaerobic, Gram-negative Streptococcus. Continue azithromycin to cover atypical such as Legionella mycoplasma because of bilateral disease it looks like. Influenza screen is negative. Continue vancomycin and Zosyn and azithromycin to cover sepsis, pneumonia and check final culture results and serology. Questionable urinary tract infection, however, UA is fairly benign. There are RBCs. We will check urine culture. Check followup labs and chest x-ray. Continue pulmonary treatment. 2. The patient has a history of urinary tract infection. 3. Stroke, cerebrovascular accident, transient ischemic attack with weakness on the right side. 4. . 5. Difficulty walking. 6. Dysphagia. 7. Aspiration risk. 8. Chronic pain syndrome. 9. Gastroesophageal reflux disease. 10. Hypertensive heart disease. 11. Hyperlipidemia. 12. The patient has wound. Wound care protocol. 13. Anemia. 14. Elevated CK. 15. Past medical history noted. 16. No allergies. 17. Social history is negative. 18. Family history is noncontributory. 19. MAR was noted. 20. Case was discussed with RN. 21. Continue treatment per primary consultants. 22. Notes and records were noted. Please see multiple orders on this patient. Bill Babin M.D. DR: ROBERT JOB#: [id number] CC:
[2017-04-25] VITALS (7 sets, daily range): BP systolic 98–130; BP diastolic 43–64
[2017-04-25 07:00] LABS: BASOPHILS % (AUTO) 0.5 % (0.0-2.0); EOSINOPHILS % (AUTO) 2.5 % (0.0-3.0); HEMATOCRIT 25.6 % (42.0-52.0); LYMPHOCYTES % (AUTO) 6.4 % (20.0-45.0); MEAN CORPUSCULAR VOLUME 78 FL (80-99); MONOCYTES % (AUTO) 8.7 % (1.0-10.0); NEUTROPHILS % (AUTO) 81.9 % (45.0-75.0); PLATELET COUNT 330 K/UL (150-450); RED BLOOD COUNT 3.28 M/UL (4.70-6.10); RED CELL DISTRIBUTION WIDTH 15.5 % (11.6-14.8); WHITE BLOOD COUNT 16.4 K/UL (4.8-10.8)
[2017-04-25 07:22] LABS: ALANINE AMINOTRANSFERASE 70 U/L (12-78); ALBUMIN 1.7 G/DL (3.4-5.0); ALBUMIN/GLOBULIN RATIO 0.4 (1.0-2.7); ALKALINE PHOSPHATASE 71 U/L (46-116); ANION GAP 7 mmol/L (5-15); ASPARTATE AMINO TRANSFERASE 119 U/L (15-37); BILIRUBIN,TOTAL 0.2 MG/DL (0.2-1.0); BLOOD UREA NITROGEN 11 mg/dL (7-18); CARBON DIOXIDE 27 MMOL/L (21-32); CHLORIDE 107 MMOL/L (98-107); CREATININE 0.5 MG/DL (0.55-1.30); POTASSIUM 3.7 MMOL/L (3.5-5.1); SODIUM 141 MMOL/L (136-145)
[2017-04-25] MEDS: Aspirin Baby 81mg ORAL SCH (09:05)
[2017-04-25] MEDS: Depakote ER 500mg tab ORAL SCH ×2 (09:05→21:00)
[2017-04-25] MEDS: Memantine 10mg tab ORAL SCH (09:05)
[2017-04-25] MEDS: Heparin 5000 units/ml inj SUBQ SCH (09:08)
[2017-04-25] MEDS: Albuterol/Ipratropium 3ml neb HHN SCH ×2 (09:15→13:55)
[2017-04-25] MEDS ORDERED: guaiFENesin ER 600mg tab ORAL SCH ×2 (09:15→18:00)
--- NOTE | 2017-04-25 10:02 | Diagnostic Imaging Report ---
Indication: Dyspnea Comparison: 04/23/2017 A single view chest radiograph was obtained. Findings: Patchy interstitial opacities again demonstrated within the lungs with a basilar predominance with some disease in the right upper lobe. The findings are nonspecific and acuity indeterminate and unchanged. Heart size is stable and normal. IMPRESSION: Patchy interstitial disease unchanged
--- NOTE | 2017-04-25 12:51 | Pulmonology Progress Note ---
Assessment/Plan Problems: (1) Sepsis (2) Pneumonia (3) Status post stroke (4) Dementia Assessment/Plan improving continue abx wbc lower dc Norvasc, BP is borderline low DC iv fluid, pt is eating and drinking. titrate fio2 check sputum cultures, blood cultures are negative. Subjective ROS Limited/Unobtainable: No Interval Events: comfortable Allergies: Coded Allergies: No Known Allergies (Unverified , 04/23/17) Objective Last 24 Hour Vital Signs Date Time Temp Pulse Resp B/P (MAP) Pulse Ox O2 Delivery O2 Flow Rate FiO2 04/25/17 12:00 97.2 81 18 100/50 100 04/25/17 09:00 89 107/45 04/25/17 08:00 97.1 89 18 107/45 99 04/25/17 08:00 91 04/25/17 06:40 94 18 Room Air 04/25/17 04:32 97.2 94 20 101/46 95 04/25/17 04:00 88 04/25/17 00:00 89 04/25/17 00:00 97.0 92 20 98/43 94 04/24/17 20:00 96 04/24/17 19:30 85 20 Room Air 21 04/24/17 16:00 97.5 85 18 108/50 94 04/24/17 16:00 100 Intake and Output 04/24/17 04/25/17 19:00 07:00 Intake Total 765 ml 1065 ml Balance 765 ml 1065 ml Intake Oral 240 ml 240 ml IV Total 525 ml 825 ml # Voids 3 1 Objective General Appearance: cachetic Lines, tubes and drains: peripheral HEENT: normocephalic, anicteric Neck: non-tender, normal alignment Respiratory/Chest: chest wall non-tender, lungs clear Breasts: no masses Cardiovascular/Chest: normal peripheral pulses, normal rate Abdomen: normal bowel sounds, hyperactive bowel sounds Genitourinary/Rectal: normal genital exam Extremities: normal range of motion Microbiology Date/Time Source Procedure Growth Status 04/23/17 21:20 Blood Blood Culture - Preliminary NO GROWTH AFTER 24 HOURS Resulted 04/23/17 21:15 Blood Blood Culture - Preliminary NO GROWTH AFTER 24 HOURS Resulted 04/23/17 21:28 Nasal Nares Influenza Types A,B Antigen (LUCIO) - Final Complete Laboratory Tests 04/24/17 21:00: Urine Legionella Antigen [Pending], Mycoplasma pneumoniae IgG Antibody [Pending] , Mycoplasma pneumoniae IgM Ab Titer [Pending] 04/25/17 06:20: White Blood Count 16.4H, Red Blood Count 3.28L, Hemoglobin 8.0L, Hematocrit 25.6L, Mean Corpuscular Volume 78L, Mean Corpuscular Hemoglobin 24.4L, Mean Corpuscular Hemoglobin Concent 31.3L, Red Cell Distribution Width 15.5H, Platelet Count 330, Mean Platelet Volume 7.1, Neutrophils (%) (Auto) 81.9H, Lymphocytes (%) (Auto) 6.4L, Monocytes (%) (Auto) 8.7, Eosinophils (%) (Auto) 2.5, Basophils (%) (Auto) 0.5, Sodium Level 141, Potassium Level 3.7, Chloride Level 107, Carbon Dioxide Level 27, Anion Gap 7, Blood Urea Nitrogen 11, Creatinine 0.5L, Estimat Glomerular Filtration Rate , Glucose Level 137H, Calcium Level 8.0L, Total Bilirubin 0.2, Aspartate Amino Transf (AST/SGOT) 119H , Alanine Aminotransferase (ALT/SGPT) 70, Alkaline Phosphatase 71, Pro-B-Type Natriuretic Peptide 2011H, Total Protein 6.1#L, Albumin 1.7L, Globulin 4.4, Albumin/Globulin Ratio 0.4L Current Medications Medications (Trade) Dose Ordered Sig/Marya Route PRN Reason Start Time Stop Time Status Last Admin Dose Admin Acetaminophen/ Hydrocodone Bitart ([place] 10/325) 1 tab Q4H PRN ORAL Severe Pain if able to take or 04/24/17 16:45 05/01/17 16:44 Acetaminophen/ Hydrocodone Bitart ([place] 5/325) 1 tab Q4H PRN ORAL Moderate Pain (Pain Scale 4-6) 04/24/17 16:45 05/01/17 16:44 04/24/17 17:11 Albuterol/ Ipratropium (Albuterol/ Ipratropium) 3 ml Q4H PRN HHN Shortness of Breath 04/24/17 04:00 04/29/17 03:59 Albuterol/ Ipratropium (Albuterol/ Ipratropium) 3 ml Q6HRT HHN 04/25/17 09:15 04/30/17 09:14 Amlodipine Besylate (Norvasc) 5 mg DAILY ORAL 04/24/17 09:00 05/24/17 08:59 Aspirin (ASA) 81 mg DAILY ORAL 04/24/17 09:00 05/24/17 08:59 04/25/17 09:05 Azithromycin (Zithromax) 250 mg QHS ORAL 04/25/17 21:00 05/02/17 20:59 Divalproex Sodium (Depakote ER) 500 mg EVERY 12 HOURS ORAL 04/24/17 09:00 05/24/17 08:59 04/25/17 09:05 Guaifenesin (Mucinex ER) 600 mg TWICE A DAY ORAL 04/25/17 09:15 05/25/17 09:14 04/25/17 10:39 Heparin Sodium (Porcine) (Heparin 5000 units/ml) 5,000 units EVERY 12 HOURS SUBQ 04/24/17 09:00 05/24/17 08:59 04/25/17 09:08 Memantine (Namenda) 10 mg DAILY ORAL 04/24/17 09:00 05/24/17 08:59 04/25/17 09:05 Morphine Sulfate (Morphine Sulfate) 2 mg Q4H PRN IVP Severe Pain 04/24/17 17:15 05/01/17 17:14 04/24/17 21:33 Pantoprazole (Protonix) 40 mg DAILY ORAL 04/24/17 09:00 05/24/17 08:59 04/25/17 09:05 Piperacillin Sod/ Tazobactam Sod 3.375 gm/Dextrose 100 ml @ 25 mls/hr EVERY 8 HOURS IVPB 04/24/17 22:00 04/29/17 21:59 04/25/17 05:45 Pravastatin Sodium (Pravachol) 20 mg BEDTIME ORAL 04/24/17 21:00 05/24/17 20:59 04/24/17 21:31 Sodium Chloride 1,000 ml @ 75 mls/hr [id number] IV 04/24/17 11:15 05/24/17 11:14 04/25/17 00:48 Vancomycin HCl (Vanco rx to dose) 1 ea DAILYPRN PRN MISC Per rx protocol 04/24/17 20:30 05/24/17 20:29 Vancomycin HCl 500 mg/Dextrose 275 ml @ 275 mls/hr Q24H IVPB 04/25/17 23:00 04/30/17 22:59 ENEDINA REBOLLEDO Apr 25, 2017 12:51
--- NOTE | 2017-04-25 14:23 | General Progress Note ---
Assessment/Plan Problem List: (1) Severe sepsis ICD Codes: A41.9 - Sepsis, unspecified organism; R65.20 - Severe sepsis without septic shock SNOMED: 29959941 (2) HCAP (healthcare-associated pneumonia) ICD Codes: J18.9 - Pneumonia, unspecified organism SNOMED: 486255538 (3) Lactic acidosis ICD Codes: E87.2 - Acidosis SNOMED: 56011162 (4) Toxic metabolic encephalopathy ICD Codes: G92 - Toxic encephalopathy SNOMED: 437088027 (5) Dementia ICD Codes: F03.90 - Unspecified dementia without behavioral disturbance SNOMED: 19398141 Qualifiers: Qualified Codes: F03.90 - Unspecified dementia without behavioral disturbance (6) Status post CVA ICD Codes: Z86.73 - Personal history of transient ischemic attack (TIA), and cerebral infarction without residual deficits SNOMED: 949771668 (7) HTN (hypertension) ICD Codes: I10 - Essential (primary) hypertension SNOMED: 57944342 (8) HLD (hyperlipidemia) ICD Codes: E78.5 - Hyperlipidemia, unspecified SNOMED: 10639762 (9) Severe protein-calorie malnutrition ICD Codes: E43 - Unspecified severe protein-calorie malnutrition SNOMED: 897585231 (10) Hyponatremia ICD Codes: E87.1 - Hypo-osmolality and hyponatremia SNOMED: 56074192 Status: stable Assessment/Plan ID and pulm consulted, appreciate recs Cont vanco, zosyn and azithro per ID F/u cultures Monitor CXR Duonebs ATC and PRN Mucinex Swallow eval--video swallow study ordered exerciser horse consult mIVFs Trend CBC, BMP Psych consulted given hallucinations, agitation Pain control, bowel regimen Supportive care PT/OT/ST DVT Prophylaxis: SCD, HSQ Code Status: Full Hospital Classification Declaration: Based on this initial evaluation, and depending on the patient's clinical course, I anticipate that this patient will require hospitalization for 1-2 days for sepsis, PNA and close respiratory/ hemodynamic monitoring. Disposition: Once the patient is stable to leave the hospital, I anticipate the patient will likely be discharged to the following environment: back to SNF Discussed with patient/family, nursing staff, SW/CM, ID, pulm regarding clinical status, treatment course, and disposition planning. Time of note may not reflect time of encounter. Subjective Date patient seen: Apr 25, 2017 Time patient seen: 14:22 ROS Limited/Unobtainable: Yes Constitutional: Reports: no symptoms HEENT: Reports: no symptoms Cardiovascular: Reports: no symptoms Respiratory: Reports: cough, shortness of breath Gastrointestinal/Abdominal: Reports: no symptoms Genitourinary: Reports: no symptoms Neurologic/Psychiatric: Reports: no symptoms Endocrine: Reports: no symptoms Hematologic/Lymphatic: Reports: no symptoms Allergies: Coded Allergies: No Known Allergies (Unverified , 04/23/17) All Systems: reviewed and negative except above Subjective No acute o/n events Having hallucinations today, states that he sees the devil. Cough and SOB improving. Denies f/c, n/v, d/c, chest pain. Objective Last 24 Hour Vital Signs Date Time Temp Pulse Resp B/P (MAP) Pulse Ox O2 Delivery O2 Flow Rate FiO2 04/25/17 14:00 21 04/25/17 13:59 88 20 95 Room Air 21 04/25/17 12:00 97.2 81 18 100/50 100 04/25/17 09:00 89 107/45 04/25/17 08:00 97.1 89 18 107/45 99 04/25/17 08:00 91 04/25/17 06:40 94 18 Room Air 04/25/17 04:32 97.2 94 20 101/46 95 04/25/17 04:00 88 04/25/17 00:00 89 04/25/17 00:00 97.0 92 20 98/43 94 04/24/17 20:00 96 04/24/17 19:30 85 20 Room Air 21 04/24/17 16:00 97.5 85 18 108/50 94 04/24/17 16:00 100 Intake and Output 04/24/17 04/25/17 19:00 07:00 Intake Total 765 ml 1065 ml Balance 765 ml 1065 ml Intake Oral 240 ml 240 ml IV Total 525 ml 825 ml # Voids 3 1 Laboratory Tests 04/24/17 21:00: Urine Legionella Antigen [Pending], Mycoplasma pneumoniae IgG Antibody [Pending] , Mycoplasma pneumoniae IgM Ab Titer [Pending] 04/25/17 06:20: White Blood Count 16.4H, Red Blood Count 3.28L, Hemoglobin 8.0L, Hematocrit 25.6L, Mean Corpuscular Volume 78L, Mean Corpuscular Hemoglobin 24.4L, Mean Corpuscular Hemoglobin Concent 31.3L, Red Cell Distribution Width 15.5H, Platelet Count 330, Mean Platelet Volume 7.1, Neutrophils (%) (Auto) 81.9H, Lymphocytes (%) (Auto) 6.4L, Monocytes (%) (Auto) 8.7, Eosinophils (%) (Auto) 2.5, Basophils (%) (Auto) 0.5, Sodium Level 141, Potassium Level 3.7, Chloride Level 107, Carbon Dioxide Level 27, Anion Gap 7, Blood Urea Nitrogen 11, Creatinine 0.5L, Estimat Glomerular Filtration Rate , Glucose Level 137H, Calcium Level 8.0L, Total Bilirubin 0.2, Aspartate Amino Transf (AST/SGOT) 119H , Alanine Aminotransferase (ALT/SGPT) 70, Alkaline Phosphatase 71, Pro-B-Type Natriuretic Peptide 2011H, Total Protein 6.1#L, Albumin 1.7L, Globulin 4.4, Albumin/Globulin Ratio 0.4L Height (Feet): 5 Height (Inches): 7.00 Weight (Pounds): 92 Objective General: alert, cooperative, no distress, appears stated age, thin Head: normocephalic, without obvious abnormality, atraumatic Eyes: conjunctivae/corneas clear. PERRL, EOM's intact Throat: lips, mucosa, and tongue normal. MMM Neck: supple, symmetrical, trachea midline, and no JVD Lungs: +rhonchi b/l, decreased breath sounds b/l Heart: regular rate and rhythm, S1, S2 normal, no murmur, click, rub or gallop Abdomen: soft, non-tender, non-distended, bowel sounds normal; no masses or organomegaly Extremities: extremities normal, atraumatic, no cyanosis or edema Pulses: 2+ and symmetric Skin: skin color, texture, turgor normal; no rashes or lesions Neurologic: grossly normal, no focal deficits Padmini Demarco M.D. Apr 25, 2017 14:22
[2017-04-25] MEDS ORDERED: Multivitamin w/Minerals tab ORAL SCH (14:30)
[2017-04-25] MEDS ORDERED: TraZODone 50mg tab ORAL PRN (15:00)
[2017-04-25] MEDS ORDERED: Albuterol/Ipratropium 3ml neb HHN PRN ×2 (16:00→21:00)
[2017-04-25] MEDS ORDERED: HYDROcodone/Acetamin 10/325 tab ORAL PRN ×2 (16:45→20:45)
[2017-04-25] MEDS ORDERED: Norco 5mg/325mg tab ORAL PRN ×2 (16:45→20:45)
[2017-04-25] MEDS ORDERED: Morphine Sulfate 2mg/ml Inj IVP PRN ×2 (17:15→21:15)
[2017-04-25] MEDS ORDERED: Docusate 100mg cap ORAL SCH ×2 (18:00)
[2017-04-25] MEDS ORDERED: Albuterol/Ipratropium 3ml neb HHN SCH (19:00)
[2017-04-25] MEDS ORDERED: Azithromycin 250mg tab ORAL SCH ×3 (21:00)
[2017-04-25] MEDS ORDERED: Depakote ER 500mg tab ORAL SCH (21:00)
[2017-04-25] MEDS ORDERED: Heparin 5000 units/ml inj SUBQ SCH (21:00)
--- NOTE | 2017-04-25 22:49 | Wound Care Consultation ---
Wound Assessment Wound Assessment #1: Wound Number: 1 Wound Present on Admission: Yes New Wound: No Status Change of Wound: No Wound Location Body Site Modif: right Wound Location Body Site: trochanter Wound Type: pressure ulcer Yogi Test: Does not Yogi Pressure Ulcer Stage: Deep Tissue Injury Wound Thickness: Full Thickness Wound Length: 5.0 Wound Width: 5.0 Wound Depth: utd Percent of Wound Purple/Maroon: 100 Wound Drainage Amount: None Wound Drainage Odor: None/Absent Tissue Surrounding Wound: Erythemic Wound General Appearance: Reddened - maroon Wound Assessment #2: Wound Number: 2 Wound Present on Admission: Yes New Wound: No Status Change of Wound: No Wound Location Body Site Modif: left Wound Location Body Site: trochanter Wound Type: pressure ulcer Yogi Test: Does not Yogi Pressure Ulcer Stage: Unstageable Wound Thickness: Full Thickness Wound Length: 3.0 Wound Width: 2.0 Wound Depth: utd Percent of Wound [place]/Red: 20 Percent of Wound Black/Brown: 100 Wound Drainage Description: Serosanguineous Wound Drainage Amount: Scant Wound Drainage Odor: None/Absent Tissue Surrounding Wound: full thickness scar tissue Wound General Appearance: Reddened - brown, Draining Wound Assessment #3: Wound Number: 3 Wound Present on Admission: Yes New Wound: No Status Change of Wound: No Wound Location Body Site Modif: mid Wound Location Body Site: other - Sacrococcygeal Wound Type: pressure ulcer Pressure Ulcer Stage: III - scattered healing Wound Thickness: Full Thickness Wound Length: 5.5 Wound Width: 4.5 Wound Depth: utd Percent of Wound [place]/Red: 90 Percent of Wound Bed Yellow/Wh: 10 Wound Drainage Description: Serosanguineous Wound Drainage Amount: Scant Wound Drainage Odor: None/Absent Tissue Surrounding Wound: full thickness scar tissue Wound General Appearance: Reddened, Draining Wound Assessment #4: Wound Number: 4 Wound Present on Admission: Yes New Wound: No Status Change of Wound: No Wound Location Body Site Modif: right Wound Location Body Site: metatarsal head - 1st Wound Type: pressure ulcer Yogi Test: Does not Yogi Pressure Ulcer Stage: Unstageable Wound Thickness: Full Thickness Wound Length: 3.5 Wound Width: 3.5 Wound Depth: utd Percent of Wound Bed Yellow/Wh: 20 Percent of Wound Black/Brown: 80 Wound Drainage Description: Serosanguineous Wound Drainage Amount: Scant Wound Drainage Odor: None/Absent Tissue Surrounding Wound: Erythemic Wound General Appearance: Blackened - yellow, Necrotic Wound Assessment #5: Wound Number: 5 Wound Present on Admission: Yes New Wound: No Status Change of Wound: No Wound Location Body Site Modif: right, mid, lateral Wound Location Body Site: foot Wound Type: pressure ulcer Yogi Test: Does not Yogi Wound Thickness: Full Thickness Wound Length: 2.0 Wound Width: 2.0 Wound Depth: utd Percent of Wound [place]/Red: 100 - deep Wound Drainage Amount: None Wound Drainage Odor: None/Absent Tissue Surrounding Wound: Intact Wound General Appearance: Reddened - deep Wound Assessment #6: Wound Number: 6 Wound Present on Admission: Yes New Wound: No Status Change of Wound: No Wound Location Body Site Modif: left Wound Location Body Site: ischial tuberosity Wound Type: pressure ulcer Yogi Test: Does not Yogi Wound Thickness: Full Thickness - scar tissue Percent of Wound [place]/Red: 100 Wound Drainage Amount: None Wound Drainage Odor: None/Absent Tissue Surrounding Wound: Intact Wound General Appearance: Asymptomatic Wound Assessment #7: Wound Number: 7 Wound Present on Admission: Yes New Wound: No Status Change of Wound: No Wound Location Body Site Modif: left, right, lower Wound Location Body Site: leg - and dorsal foot Wound Type: scab - scattered multiple dry scabs Yogi Test: Does not Yogi Wound Thickness: Full Thickness Percent of Wound Purple/Maroon: 100 - dry Wound Drainage Amount: None Wound Drainage Odor: None/Absent Tissue Surrounding Wound: Erythemic Wound Comment #1 Right trochanter DTI pressure ulcer #2 Left trochanter unstageable pressure ulcer with black eschar adhered to wound bed #3 Sacrococcygeal healing stage III pressure ulcer #4 Right 1st metatarsal head unstageable pressure ulcer #5 Right lateral mid foot DTI pressure ulcer #6 Left ischial tuberosity full thickness scar tissue pressure ulcer #7 Left and right lower legs and feet with scattered dry scabs Recommendation -Local wound care per protocol -Optimize nutrition -Keep clean and dry -Heel protector on both heels -Offload both heels -Turn and reposition -Low air loss mattress -Assess and f/u accordingly for any changes CÉSAR JONES RN Apr 25, 2017 22:49
[2017-04-25] MEDS ORDERED: Vancomycin 500mg in D5W 275ml IVPB SCH (23:00)
[2017-04-25] MEDS ORDERED: Vancomycin 500 MG in D5W 275 ML IVPB SCH ×4 (23:00)
[2017-04-26] MEDS: Albuterol/Ipratropium 3ml neb HHN SCH ×3 (01:00→13:04)
[2017-04-26 03:31] VITALS: BP 104/55
[2017-04-26] MEDS ORDERED: Zosyn 3.375gm inj ONE (03:55)
--- NOTE | 2017-04-26 08:10 | Pulmonology Progress Note ---
Assessment/Plan Assessment/Plan ASSESSMENT Sepsis HCAP severe protein calorie malnutrition acute toxic metabolic encephalopathy on chronic dementia hx of CVA with R hemiplegia anemia requiring blood transfusion iron deficiency anemia HTN Hyperlipidemia hypokalemia sacrococcyx decub st 3 POA DTI: L midfoot and R trochanter, both POA PLAN OF CARE MS floor O2 titrate prn HHN CXR w/out significant changes ; WBC trending down fup with CXR empiric abx, ID follows bl cx prel negative, influenza negative sputum cx if able a/tussive prn swallow eval with evid of dysphagia, continue current diet with strict aspiration/reflux precautions recommended VSS-per PMD discretion anemia w/up c/w TAMARA, stool OB, transfuse today, monitor counts, iron IV replace K DVT GI prophayxlsi BP management, stable w/out any antiHTN continue ASA and statin, dietary eval , recom implemented bowel regimen case discussed and evaluated by supervising physician Subjective Allergies: Coded Allergies: No Known Allergies (Unverified , 04/23/17) Subjective afebrile, leukocytosis resovled HH down to 7.5/25.2 K-3.3 Objective Last 24 Hour Vital Signs Date Time Temp Pulse Resp B/P (MAP) Pulse Ox O2 Delivery O2 Flow Rate FiO2 04/26/17 03:31 97.7 77 21 104/55 96 04/26/17 01:07 Room Air 04/26/17 01:07 Room Air 04/25/17 23:40 98.4 74 20 111/64 04/25/17 20:23 97.7 91 21 116/55 96 04/25/17 20:05 21 04/25/17 20:05 105 20 98 Room Air 21 04/25/17 19:46 94 18 Room Air 04/25/17 19:44 8 20 95 Room Air 21 04/25/17 16:00 97.9 86 21 130/51 94 04/25/17 14:00 21 04/25/17 13:59 88 20 95 Room Air 21 04/25/17 12:00 97.2 81 18 100/50 100 04/25/17 12:00 89 04/25/17 09:00 89 107/45 Intake and Output 04/25/17 04/26/17 19:00 07:00 Intake Total 120 ml Balance 120 ml Intake Oral 120 ml # Voids 1 2 # Bowel Movements 1 General Appearance: no acute distress, other - bedridden cachetic male in NAD, awake, responsive HEENT: normocephalic, atraumatic Respiratory/Chest: lungs clear - with moderate air exchange Cardiovascular: normal rate, regular rhythm, no gallop/murmur Abdomen: normal bowel sounds, soft, non tender Extremities: no edema, pedal pulses normal Neurologic/Psychiatric: abnormal gait, alert, responsive Musculoskeletal: atrophy - BLE Microbiology Date/Time Source Procedure Growth Status 04/23/17 21:20 Blood Blood Culture - Preliminary NO GROWTH AFTER 48 HOURS Resulted 04/23/17 21:15 Blood Blood Culture - Preliminary NO GROWTH AFTER 48 HOURS Resulted 04/23/17 21:28 Nasal Nares Influenza Types A,B Antigen (LUCIO) - Final Complete Laboratory Tests 04/26/17 06:10: White Blood Count [Pending], Red Blood Count [Pending], Hemoglobin [Pending], Hematocrit [Pending], Mean Corpuscular Volume [Pending], Mean Corpuscular Hemoglobin [Pending], Mean Corpuscular Hemoglobin Concent [Pending], Red Cell Distribution Width [Pending], Platelet Count [Pending], Mean Platelet Volume [ Pending], Neutrophils (%) (Auto) [Pending], Lymphocytes (%) (Auto) [Pending], Monocytes (%) (Auto) [Pending], Eosinophils (%) (Auto) [Pending], Basophils (%) (Auto) [Pending], Erythrocyte Sedimentation Rate [Pending], Sodium Level [ Pending], Potassium Level [Pending], Chloride Level [Pending], Carbon Dioxide Level [Pending], Blood Urea Nitrogen [Pending], Creatinine [Pending], Estimat Glomerular Filtration Rate [Pending], Glucose Level [Pending], Calcium Level [ Pending], Phosphorus Level [Pending], Magnesium Level [Pending], Total Bilirubin [Pending], Aspartate Amino Transf (AST/SGOT) [Pending], Alanine Aminotransferase (ALT/SGPT) [Pending], Alkaline Phosphatase [Pending], C- Reactive Protein, Quantitative [Pending], Total Protein [Pending], Albumin [ Pending], Globulin [Pending] Current Medications Medications (Trade) Dose Ordered Sig/Marya Route PRN Reason Start Time Stop Time Status Last Admin Dose Admin Acetaminophen/ Hydrocodone Bitart ([place] 10/325) 1 tab Q4H PRN ORAL Severe Pain if able to take PO 04/25/17 20:45 05/01/17 16:44 Acetaminophen/ Hydrocodone Bitart ([place] 5/325) 1 tab Q4H PRN ORAL Moderate Pain (Pain Scale 4-6) 04/25/17 20:45 05/01/17 16:44 Albuterol/ Ipratropium (Albuterol/ Ipratropium) 3 ml Q4H PRN HHN Shortness of Breath 04/25/17 21:00 04/30/17 20:59 Albuterol/ Ipratropium (Albuterol/ Ipratropium) 3 ml Q6HRT HHN 04/26/17 01:00 04/30/17 09:14 04/26/17 07:08 Aspirin (ASA) 81 mg DAILY ORAL 04/26/17 09:00 05/24/17 08:59 Azithromycin (Zithromax) 250 mg QHS ORAL 04/25/17 21:00 05/02/17 20:59 04/25/17 21:00 Divalproex Sodium (Depakote ER) 500 mg EVERY 12 HOURS ORAL 04/25/17 21:00 05/24/17 08:59 04/25/17 21:00 Docusate Sodium (Colace) 100 mg TWICE A DAY ORAL 04/26/17 09:00 05/25/17 17:59 Guaifenesin (Mucinex ER) 600 mg TWICE A DAY ORAL 04/26/17 09:00 05/25/17 09:14 Heparin Sodium (Porcine) (Heparin 5000 units/ml) 5,000 units EVERY 12 HOURS SUBQ 04/26/17 09:00 05/26/17 08:59 Memantine (Namenda) 10 mg DAILY ORAL 04/26/17 09:00 05/24/17 08:59 Mirtazapine (Remeron) 15 mg BEDTIME ORAL 04/25/17 21:00 05/25/17 20:59 04/25/17 21:00 Morphine Sulfate (Morphine Sulfate) 2 mg Q4H PRN IVP Severe Pain 04/25/17 21:15 05/01/17 17:14 Multivitamins Therapeutic (Therapeutic Multivitamin) 1 ea DAILY ORAL 04/26/17 09:00 05/25/17 14:29 Pantoprazole (Protonix) 40 mg DAILY ORAL 04/26/17 09:00 05/24/17 08:59 Piperacillin Sod/ Tazobactam Sod 3.375 gm/Dextrose 100 ml @ 25 mls/hr EVERY 8 HOURS IVPB 04/25/17 22:00 04/30/17 21:59 04/26/17 04:59 Pravastatin Sodium (Pravachol) 20 mg BEDTIME ORAL 04/25/17 21:00 05/24/17 20:59 04/25/17 21:00 Trazodone HCl (Desyrel) 150 mg HSPRN PRN ORAL insomnia 04/26/17 21:00 05/25/17 20:59 Vancomycin HCl (Vanco rx to dose) 1 ea DAILYPRN PRN MISC Per rx protocol 04/25/17 21:00 05/25/17 20:59 Vancomycin HCl 500 mg/Dextrose 275 ml @ 275 mls/hr Q24H IVPB 04/25/17 23:00 04/30/17 22:59 04/25/17 22:54 Johnny (Cathy)Eun NP Apr 26, 2017 08:10
[2017-04-26 08:44] LABS: ALANINE AMINOTRANSFERASE 87 U/L (12-78); ALBUMIN 1.7 G/DL (3.4-5.0); ALBUMIN/GLOBULIN RATIO 0.4 (1.0-2.7); ALKALINE PHOSPHATASE 81 U/L (46-116); ANION GAP 9 mmol/L (5-15); ASPARTATE AMINO TRANSFERASE 79 U/L (15-37); BILIRUBIN,TOTAL 0.2 MG/DL (0.2-1.0); BLOOD UREA NITROGEN 5 mg/dL (7-18); CALCIUM 8.2 MG/DL (8.5-10.1); CARBON DIOXIDE 25 MMOL/L (21-32); CHLORIDE 104 MMOL/L (98-107); CREATININE 0.5 MG/DL (0.55-1.30); PHOSPHORUS 2.9 MG/DL (2.5-4.9); POTASSIUM 3.3 MMOL/L (3.5-5.1); SODIUM 138 MMOL/L (136-145)
[2017-04-26] MEDS ORDERED: Memantine 10mg tab ORAL SCH (09:00)
[2017-04-26] MEDS ORDERED: Multivitamin w/Minerals tab ORAL SCH (09:00)
[2017-04-26] MEDS ORDERED: Aspirin Baby 81mg ORAL SCH (09:00)
[2017-04-26] MEDS: guaiFENesin ER 600mg tab ORAL SCH ×2 (09:12→17:34)
[2017-04-26] MEDS: Docusate 100mg cap ORAL SCH ×2 (09:12→09:25)
[2017-04-26] MEDS: Memantine 10mg tab ORAL SCH (09:13)
[2017-04-26] MEDS: Depakote ER 500mg tab ORAL SCH ×2 (09:13→20:35)
[2017-04-26] MEDS: Heparin 5000 units/ml inj SUBQ SCH ×2 (09:18→20:36)
[2017-04-26] MEDS: Aspirin Baby 81mg ORAL SCH (09:25)
[2017-04-26] MEDS: Multivitamin w/Minerals tab ORAL SCH (09:26)
[2017-04-26 10:25] LABS: HEMATOCRIT 25.2 % (42.0-52.0); HEMOGLOBIN 7.5 G/DL (14.2-18.0); MEAN CORPUSCULAR VOLUME 77 FL (80-99); PLATELET COUNT 324 K/UL (150-450); RED BLOOD COUNT 3.26 M/UL (4.70-6.10); RED CELL DISTRIBUTION WIDTH 15.5 % (11.6-14.8); WHITE BLOOD COUNT 10.2 K/UL (4.8-10.8)
[2017-04-26 10:50] LABS: CREATINE KINASE 343 U/L (26-308); FERRITIN 93 NG/ML (8-388)
[2017-04-26 11:04] LABS: % IRON SATURATION 5 % (15-50); IRON 8 ug/dL (50-175); TOTAL IRON BINDING CAPACITY 172 ug/dL (250-450)
--- NOTE | 2017-04-26 12:45 | General Progress Note ---
Assessment/Plan Problem List: (1) Severe sepsis ICD Codes: A41.9 - Sepsis, unspecified organism; R65.20 - Severe sepsis without septic shock SNOMED: 95530476 (2) HCAP (healthcare-associated pneumonia) ICD Codes: J18.9 - Pneumonia, unspecified organism SNOMED: 273270335 (3) Lactic acidosis ICD Codes: E87.2 - Acidosis SNOMED: 52629524 (4) Toxic metabolic encephalopathy ICD Codes: G92 - Toxic encephalopathy SNOMED: 447361807 (5) Dementia ICD Codes: F03.90 - Unspecified dementia without behavioral disturbance SNOMED: 47282610 Qualifiers: Qualified Codes: F03.90 - Unspecified dementia without behavioral disturbance (6) Status post CVA ICD Codes: Z86.73 - Personal history of transient ischemic attack (TIA), and cerebral infarction without residual deficits SNOMED: 756875705 (7) HTN (hypertension) ICD Codes: I10 - Essential (primary) hypertension SNOMED: 25857790 (8) HLD (hyperlipidemia) ICD Codes: E78.5 - Hyperlipidemia, unspecified SNOMED: 10837017 (9) Severe protein-calorie malnutrition ICD Codes: E43 - Unspecified severe protein-calorie malnutrition SNOMED: 317191966 (10) Hyponatremia ICD Codes: E87.1 - Hypo-osmolality and hyponatremia SNOMED: 98439011 Status: stable Assessment/Plan ID and pulm consulted, appreciate recs Cont vanco, zosyn and azithro per ID --> change to augmentin + doxycycline today F/u cultures Monitor CXR Duonebs ATC and PRN Mucinex Swallow eval--video swallow study ordered semiconductor manufacturing technician consult mIVFs Trend CBC, BMP Psych consulted given hallucinations, agitation Pain control, bowel regimen Supportive care PT/OT/ST DC to SNF tomorrow DVT Prophylaxis: SCD, HSQ Code Status: Full Hospital Classification Declaration: Based on this initial evaluation, and depending on the patient's clinical course, I anticipate that this patient will require hospitalization for 1-2 days for sepsis, PNA and close respiratory/ hemodynamic monitoring. Disposition: Once the patient is stable to leave the hospital, I anticipate the patient will likely be discharged to the following environment: back to SNF Discussed with patient/family, nursing staff, SW/CM, ID, pulm regarding clinical status, treatment course, and disposition planning. D/w ID re abx. Time of note may not reflect time of encounter. Subjective Date patient seen: Apr 26, 2017 Time patient seen: 12:44 ROS Limited/Unobtainable: No Constitutional: Reports: no symptoms HEENT: Reports: no symptoms Cardiovascular: Reports: no symptoms Respiratory: Reports: cough, shortness of breath Gastrointestinal/Abdominal: Reports: no symptoms Genitourinary: Reports: no symptoms Neurologic/Psychiatric: Reports: no symptoms Endocrine: Reports: no symptoms Hematologic/Lymphatic: Reports: no symptoms Allergies: Coded Allergies: No Known Allergies (Unverified , 04/23/17) All Systems: reviewed and negative except above Subjective No acute o/n events Pt feeling better. Cough, SOB improving. Less agitated Objective Last 24 Hour Vital Signs Date Time Temp Pulse Resp B/P (MAP) Pulse Ox O2 Delivery O2 Flow Rate FiO2 04/26/17 07:18 79 18 98 Room Air 21 04/26/17 07:08 74 16 96 Room Air 21 04/26/17 07:08 21 04/26/17 07:08 96 16 Room Air 21 04/26/17 03:31 97.7 77 21 104/55 96 04/26/17 01:07 Room Air 04/26/17 01:07 Room Air 04/25/17 23:40 98.4 74 20 111/64 04/25/17 20:23 97.7 91 21 116/55 96 04/25/17 20:05 21 04/25/17 20:05 105 20 98 Room Air 21 04/25/17 19:46 94 18 Room Air 04/25/17 19:44 8 20 95 Room Air 21 04/25/17 16:00 97.9 86 21 130/51 94 04/25/17 14:00 21 04/25/17 13:59 88 20 95 Room Air 21 Intake and Output 04/25/17 04/26/17 19:00 07:00 Intake Total 120 ml Balance 120 ml Intake Oral 120 ml # Voids 1 2 # Bowel Movements 1 Laboratory Tests 04/26/17 06:10: Sodium Level 138, Potassium Level 3.3L, Chloride Level 104, Carbon Dioxide Level 25, Anion Gap 9, Blood Urea Nitrogen 5L, Creatinine 0.5L, Estimat Glomerular Filtration Rate , Glucose Level 162H, Calcium Level 8.2L, Phosphorus Level 2.9, Magnesium Level 1.7L, Total Bilirubin 0.2, Aspartate Amino Transf ( AST/SGOT) 79H, Alanine Aminotransferase (ALT/SGPT) 87H, Alkaline Phosphatase 81 , C-Reactive Protein, Quantitative 12.3H, Total Protein 6.0L, Albumin 1.7L, Globulin 4.3, Albumin/Globulin Ratio 0.4L 04/26/17 09:50: White Blood Count 10.2, Red Blood Count 3.26L, Hemoglobin 7.5L, Hematocrit 25.2L , Mean Corpuscular Volume 77L, Mean Corpuscular Hemoglobin 23.1L, Mean Corpuscular Hemoglobin Concent 29.9L, Red Cell Distribution Width 15.5H, Platelet Count 324, Mean Platelet Volume 6.8, Neutrophils (%) (Auto) , Lymphocytes (%) (Auto) , Monocytes (%) (Auto) , Eosinophils (%) (Auto) , Basophils (%) (Auto) , Differential Total Cells Counted 100, Neutrophils % ( Manual) 72, Lymphocytes % (Manual) 14L, Monocytes % (Manual) 7, Eosinophils % ( Manual) 6H, Basophils % (Manual) 1, Band Neutrophils 0, Platelet Estimate Adequate, Platelet Morphology Normal, Hypochromasia 1+, Anisocytosis 1+, Microcytosis 1+, Erythrocyte Sedimentation Rate 83H, Iron Level 8L, Total Iron Binding Capacity 172L, Percent Iron Saturation 5L, Unsaturated Iron Binding 164 , Ferritin 93, Total Creatine Kinase 343H, Vitamin B12 Level 695, RBC Folate Hemolysate [Pending], Red Blood Cell Folate [Pending] Height (Feet): 5 Height (Inches): 7.00 Weight (Pounds): 92 Objective General: alert, cooperative, no distress, appears stated age, thin Head: normocephalic, without obvious abnormality, atraumatic Eyes: conjunctivae/corneas clear. PERRL, EOM's intact Throat: lips, mucosa, and tongue normal. MMM Neck: supple, symmetrical, trachea midline, and no JVD Lungs: +rhonchi b/l, decreased breath sounds b/l Heart: regular rate and rhythm, S1, S2 normal, no murmur, click, rub or gallop Abdomen: soft, non-tender, non-distended, bowel sounds normal; no masses or organomegaly Extremities: extremities normal, atraumatic, no cyanosis or edema Pulses: 2+ and symmetric Skin: skin color, texture, turgor normal; no rashes or lesions Neurologic: grossly normal, no focal deficits Padmini Demarco M.D. Apr 26, 2017 12:44
[2017-04-26] MEDS ORDERED: RISPERDAL2 MG ORAL (14:14)
[2017-04-26] MEDS: Miralax 17gm pkt ORAL SCH (15:21)
--- NOTE | 2017-04-26 17:16 | Infectious Diseases Prog Note ---
Assessment/Plan Assessment/Plan ASSESSMENT AND PLAN: 1. sepsis, pna, leukocytosis, sirs, congestion, cough - clinically improved, on zosyn and vancomycin, azithromycin, no sputum culture obtained, other cultures negative - will place on augmentin and doxycycline for one week, discontinue iv abx - check labs and chest x-ray - d/w Dr. Navarro about abx tx course 2. The patient has a history of urinary tract infection. 3. Stroke, cerebrovascular accident, transient ischemic attack with weakness on the right side. 4. weakness 5. Difficulty walking. 6. Dysphagia. 7. Aspiration risk. 8. Chronic pain syndrome. 9. Gastroesophageal reflux disease. 10. Hypertensive heart disease. 11. Hyperlipidemia. 12. The patient has wound. Wound care protocol. 13. Anemia. 14. Elevated CK. 15. Past medical history noted. 16. No allergies. 17. Social history is negative. 18. Family history is noncontributory. 19. MAR was noted. 20. Case was discussed with RN. 21. Continue treatment per primary consultants. 22. Notes and records were noted. Subjective Constitutional: Denies: fever HEENT: Denies: congestion Respiratory: Denies: shortness of breath Cardiovascular: Denies: chest pain Gastrointestinal/Abdominal: Denies: nausea, vomiting, diarrhea Genitourinary: Reports: other - no barton, Denies: dysuria, hematuria Neurologic: Denies: headache Psychiatric: Denies: depression Skin: Denies: rash Hematologic: Denies: bleeding Musculoskeletal: Denies: pain Allergies: Coded Allergies: No Known Allergies (Unverified , 04/23/17) Objective Vital Signs Last 24 Hour Vital Signs Date Time Temp Pulse Resp B/P (MAP) Pulse Ox O2 Delivery O2 Flow Rate FiO2 04/26/17 13:08 81 18 98 Room Air 21 04/26/17 13:04 21 04/26/17 13:04 76 16 96 Room Air 21 04/26/17 07:18 79 18 98 Room Air 21 04/26/17 07:08 74 16 96 Room Air 21 04/26/17 07:08 21 04/26/17 07:08 96 16 Room Air 21 04/26/17 03:31 97.7 77 21 104/55 96 04/26/17 01:07 Room Air 04/26/17 01:07 Room Air 04/25/17 23:40 98.4 74 20 111/64 04/25/17 20:23 97.7 91 21 116/55 96 04/25/17 20:05 21 04/25/17 20:05 105 20 98 Room Air 21 04/25/17 19:46 94 18 Room Air 04/25/17 19:44 8 20 95 Room Air 21 Height (Feet): 5 Height (Inches): 7.00 Weight (Pounds): 92 General Appearance: no acute distress HEENT: normocephalic, atraumatic, anicteric, mucous membranes moist, EOMI, supple, no JVD Respiratory/Chest: crackles/rales, rhonchi - bilaterally Cardiovascular: normal rate, regular rhythm, no gallop/murmur, no JVD Abdomen: normal bowel sounds, soft, non tender, no organomegaly, non distended Genitourinary: other - no barton Extremities: no cyanosis Skin: no rash 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 Complete 04/23/17 21:28 Nasal Nares Influenza Types A,B Antigen (LUCIO) - Final Complete 04/24/17 02:10 Rectum VRE Culture - Final NO VANCOMYCIN RESISTANT ENTEROCOCCUS ... Complete Laboratory Tests Test 04/26/17 06:10 04/26/17 09:50 Sodium Level 138 MMOL/L (136-145) Potassium Level 3.3 MMOL/L (3.5-5.1) L Chloride Level 104 MMOL/L (98-107) Carbon Dioxide Level 25 MMOL/L (21-32) Anion Gap 9 mmol/L (5-15) Blood Urea Nitrogen 5 mg/dL (7-18) L Creatinine 0.5 MG/DL (0.55-1.30) L Estimat Glomerular Filtration Rate mL/min (>60) Glucose Level 162 MG/DL (74-106) H Calcium Level 8.2 MG/DL (8.5-10.1) L Phosphorus Level 2.9 MG/DL (2.5-4.9) Magnesium Level 1.7 MG/DL (1.8-2.4) L Total Bilirubin 0.2 MG/DL (0.2-1.0) Aspartate Amino Transf (AST/SGOT) 79 U/L (15-37) H Alanine Aminotransferase (ALT/SGPT) 87 U/L (12-78) H Alkaline Phosphatase 81 U/L (46-116) C-Reactive Protein, Quantitative 12.3 mg/dL (0.00-0.90) H Total Protein 6.0 G/DL (6.4-8.2) L Albumin 1.7 G/DL (3.4-5.0) L Globulin 4.3 g/dL Albumin/Globulin Ratio 0.4 (1.0-2.7) L White Blood Count 10.2 K/UL (4.8-10.8) Red Blood Count 3.26 M/UL (4.70-6.10) L Hemoglobin 7.5 G/DL (14.2-18.0) L Hematocrit 25.2 % (42.0-52.0) L Mean Corpuscular Volume 77 FL (80-99) L Mean Corpuscular Hemoglobin 23.1 PG (27.0-31.0) L Mean Corpuscular Hemoglobin Concent 29.9 G/DL (32.0-36.0) L Red Cell Distribution Width 15.5 % (11.6-14.8) H Platelet Count 324 K/UL (150-450) Mean Platelet Volume 6.8 FL (6.5-10.1) Neutrophils (%) (Auto) % (45.0-75.0) Lymphocytes (%) (Auto) % (20.0-45.0) Monocytes (%) (Auto) % (1.0-10.0) Eosinophils (%) (Auto) % (0.0-3.0) Basophils (%) (Auto) % (0.0-2.0) Differential Total Cells Counted 100 Neutrophils % (Manual) 72 % (45-75) Lymphocytes % (Manual) 14 % (20-45) L Monocytes % (Manual) 7 % (1-10) Eosinophils % (Manual) 6 % (0-3) H Basophils % (Manual) 1 % (0-2) Band Neutrophils 0 % (0-8) Platelet Estimate Adequate Platelet Morphology Normal Hypochromasia 1+ Anisocytosis 1+ Microcytosis 1+ Erythrocyte Sedimentation Rate 83 MM/HR (0-20) H Iron Level 8 ug/dL (50-175) L Total Iron Binding Capacity 172 ug/dL (250-450) L Percent Iron Saturation 5 % (15-50) L Unsaturated Iron Binding 164 ug/dL (112-346) Ferritin 93 NG/ML (8-388) Total Creatine Kinase 343 U/L (26-308) H Vitamin B12 Level 695 PG/ML (193-986) RBC Folate Hemolysate Pending Red Blood Cell Folate Pending Current Medications Medications (Trade) Dose Ordered Sig/Marya Route PRN Reason Start Time Stop Time Status Last Admin Dose Admin Acetaminophen/ Hydrocodone Bitart ([place] 10/325) 1 tab Q4H PRN ORAL Severe Pain if able to take PO 04/25/17 20:45 05/01/17 16:44 Acetaminophen/ Hydrocodone Bitart ([place] 5/325) 1 tab Q4H PRN ORAL Moderate Pain (Pain Scale 4-6) 04/25/17 20:45 05/01/17 16:44 04/26/17 09:33 Albuterol/ Ipratropium (Albuterol/ Ipratropium) 3 ml Q4H PRN HHN Shortness of Breath 04/25/17 21:00 04/30/17 20:59 Aspirin (ASA) 81 mg DAILY ORAL 04/26/17 09:00 05/24/17 08:59 04/26/17 09:25 Azithromycin (Zithromax) 250 mg QHS ORAL 04/25/17 21:00 05/02/17 20:59 04/25/17 21:00 Bisacodyl (Dulcolax) 10 mg DAILYPRN PRN RECTAL Constipation 04/26/17 13:00 05/26/17 12:59 Divalproex Sodium (Depakote ER) 500 mg EVERY 12 HOURS ORAL 04/25/17 21:00 05/24/17 08:59 04/26/17 09:13 Docusate Sodium (Colace) 100 mg TWICE A DAY ORAL 04/26/17 09:00 05/25/17 17:59 04/26/17 09:25 Guaifenesin (Mucinex ER) 600 mg TWICE A DAY ORAL 04/26/17 09:00 05/25/17 09:14 04/26/17 09:12 Heparin Sodium (Porcine) (Heparin 5000 units/ml) 5,000 units EVERY 12 HOURS SUBQ 04/26/17 09:00 05/26/17 08:59 04/26/17 09:18 Iron Sucrose 100 mg/Sodium Chloride 60 ml @ 240 mls/hr Q24H IV 04/26/17 21:00 04/30/17 21:14 Memantine (Namenda) 10 mg DAILY ORAL 04/26/17 09:00 05/24/17 08:59 04/26/17 09:13 Morphine Sulfate (Morphine Sulfate) 2 mg Q4H PRN IVP Severe Pain 04/25/17 21:15 05/01/17 17:14 Multivitamins Therapeutic (Therapeutic Multivitamin) 1 ea DAILY ORAL 04/26/17 09:00 05/25/17 14:29 04/26/17 09:26 Pantoprazole (Protonix) 40 mg DAILY ORAL 04/26/17 09:00 05/24/17 08:59 04/26/17 09:31 Piperacillin Sod/ Tazobactam Sod 3.375 gm/Dextrose 100 ml @ 25 mls/hr EVERY 8 HOURS IVPB 04/25/17 22:00 04/30/17 21:59 04/26/17 16:04 Polyethylene Glycol (Miralax) 17 gm DAILY ORAL 04/26/17 13:30 05/26/17 13:29 04/26/17 15:21 Pravastatin Sodium (Pravachol) 20 mg BEDTIME ORAL 04/25/17 21:00 05/24/17 20:59 04/25/17 21:00 Risperidone (RisperDAL) 2 mg BEDTIME ORAL 04/26/17 21:00 05/26/17 20:59 Vancomycin HCl (Vanco rx to dose) 1 ea DAILYPRN PRN MISC Per rx protocol 04/25/17 21:00 05/25/17 20:59 Vancomycin HCl 500 mg/Dextrose 275 ml @ 275 mls/hr Q24H IVPB 04/25/17 23:00 04/30/17 22:59 04/25/17 22:54 OFE NGUYEN Apr 26, 2017 17:16
[2017-04-26] MEDS ORDERED: DOXYCYCLINE HY100 M2 ORAL (17:28)
[2017-04-26] MEDS ORDERED: AMOX TR-K CLV1 EAC2 ORAL (17:28)
[2017-04-26] MEDS ORDERED: MULTIVITAMINS1 EAC8 ORAL (17:28)
[2017-04-26] MEDS ORDERED: FERROUS SULFAT325 M2 ORAL (17:33)
[2017-04-26] MEDS ORDERED: Tubing IV Secondary IV ONE (19:16)
[2017-04-26 20:00] VITALS: BP 114/60
[2017-04-26] MEDS: Augmentin 875mg Tab ORAL SCH (20:33)
[2017-04-26] MEDS ORDERED: TraZODone 50mg tab ORAL PRN ×2 (21:00)
[2017-04-26] MEDS ORDERED: Iron Sucrose 100 MG in NS 55 ML IV SCH (21:00)
[2017-04-26] MEDS ORDERED: Iron Sucrose 100 MG in NS 55 ML IVPB SCH (21:00)
--- NOTE | 2017-04-26 21:00 | Consultation ---
DATE OF CONSULTATION: 04/25/2017 HISTORY: The patient is confused, however, alert and is not able to provide history. The patient has been hallucinating and he believes there is a devil in his room, not able to have more logical conversation. The patient is a poor historian. Also he gets agitated at times. The patient is calm and cooperative, no acute distress during the evaluation. PAST PSYCHIATRIC HISTORY: The patient has history of dementia. The patient has been treated with mood stabilizer and antipsychotics in the past. No known psychiatric history. PAST MEDICAL HISTORY: Significant for multiple medical comorbidities including shortness of breath and pneumonia. ALLERGIES: No known drug allergies. SUBSTANCE ABUSE HISTORY: No known history of illicit drug use or alcohol. MENTAL STATUS EXAMINATION: The patient is oriented times self. Mood is anxious. Affect is flat, congruent with mood. Thought process is concrete. Thought content, no suicidal or homicidal ideations. ASSESSMENT: AXIS I Dementia with psychotic disorder. AXIS II Deferred. AXIS III As above. AXIS IV Low. AXIS V Global assessment of functioning is 20. PLAN: 1. The patient will be started on risperidone 2 mg at bedtime for delusions. 2. Provide the patient with supportive therapy and reality orientation. Getachew Sagastume M.D. DR: RODRIGUEZ JOB#: [id number] CC:
--- NOTE | 2017-04-26 21:00 | Progress Note ---
DATE: 04/26/2017 SUBJECTIVE: The patient continues to be hallucinating, confused, in no acute distress. Calm and cooperative. Mood is neutral. Affect is flat. Congruent with mood. Thought process is concrete. Thought content, no suicidal or homicidal ideations. Positive for delusions. Insight and judgment is impaired. ASSESSMENT: Encephalopathy and dementia. PLAN: We will continue current medication. Getachew Sagastume M.D. DR: TONO JOB#: [id number] CC:
[2017-04-27 00:02] VITALS: BP 110/90
[2017-04-27 04:00] VITALS: BP 120/58
[2017-04-27 07:36] LABS: BASOPHILS % (AUTO) 0.3 % (0.0-2.0); HEMATOCRIT 26.3 % (42.0-52.0); LYMPHOCYTES % (AUTO) 13.6 % (20.0-45.0); MEAN CORPUSCULAR VOLUME 78 FL (80-99); MONOCYTES % (AUTO) 10.7 % (1.0-10.0); NEUTROPHILS % (AUTO) 64.4 % (45.0-75.0); PLATELET COUNT 304 K/UL (150-450); RED BLOOD COUNT 3.38 M/UL (4.70-6.10); RED CELL DISTRIBUTION WIDTH 15.8 % (11.6-14.8); WHITE BLOOD COUNT 10.1 K/UL (4.8-10.8)
[2017-04-27 07:48] LABS: ANION GAP 8 mmol/L (5-15); BLOOD UREA NITROGEN 5 mg/dL (7-18); CALCIUM 8.4 MG/DL (8.5-10.1); CARBON DIOXIDE 29 MMOL/L (21-32); CHLORIDE 106 MMOL/L (98-107); CREATININE 0.5 MG/DL (0.55-1.30); POTASSIUM 4.1 MMOL/L (3.5-5.1); SODIUM 143 MMOL/L (136-145)
[2017-04-27 08:00] VITALS: BP 104/60
[2017-04-27] MEDS: Augmentin 875mg Tab ORAL SCH (08:54)
[2017-04-27] MEDS: Miralax 17gm pkt ORAL SCH ×2 (08:55→09:00)
[2017-04-27] MEDS: Depakote ER 500mg tab ORAL SCH (08:55)
[2017-04-27] MEDS: Aspirin Baby 81mg ORAL SCH (08:55)
[2017-04-27] MEDS: guaiFENesin ER 600mg tab ORAL SCH (08:55)
[2017-04-27] MEDS: Multivitamin w/Minerals tab ORAL SCH (08:55)
[2017-04-27] MEDS: Docusate 100mg cap ORAL SCH ×2 (08:55→09:00)
[2017-04-27] MEDS: Memantine 10mg tab ORAL SCH (08:58)
[2017-04-27] MEDS ORDERED: Azithromycin 250mg tab ORAL SCH (09:00)
[2017-04-27] MEDS: Heparin 5000 units/ml inj SUBQ SCH (09:13)
[2017-04-27] MEDS ORDERED: Tubing IV Secondary IV ONE (11:19)
[2017-04-27] MEDS ORDERED: NS 500ML ONE (11:19)
--- NOTE | 2017-04-27 12:42 | Pulmonology Progress Note ---
Assessment/Plan Assessment/Plan ASSESSMENT Sepsis HCAP severe protein calorie malnutrition acute toxic metabolic encephalopathy on chronic dementia hx of CVA with R hemiplegia anemia requiring blood transfusion iron deficiency anemia HTN Hyperlipidemia hypokalemia sacrococcyx decub st 3 POA DTI: L midfoot and R trochanter, both POA PLAN OF CARE MS floor O2 titrate prn HHN CXR w/out significant changes ; leuk resolved empiric abx, ID follows bl cx prel negative, influenza negative sputum cx if able a/tussive prn swallow eval with evid of dysphagia, continue current diet with strict aspiration/reflux precautions recommended VSS-per PMD discretion , can eb done as outpt anemia w/up c/w TAMARA, stool OB, transfuse today, monitor counts, iron IV replace K DVT GI prophayxlsi BP management, stable w/out any antiHTN continue ASA and statin, dietary eval , recom implemented bowel regimen dc plan as per PMD NOTE: Time of this note does not reflect the actual time the patient was seen. The patient was seen at 0930 case discussed and evaluated by supervising physician Subjective Allergies: Coded Allergies: No Known Allergies (Unverified , 04/23/17) Subjective afebrile, leukocytosis resolved no signs of resp distress Objective Last 24 Hour Vital Signs Date Time Temp Pulse Resp B/P (MAP) Pulse Ox O2 Delivery O2 Flow Rate FiO2 04/27/17 08:00 97.2 86 19 104/60 95 Room Air 04/27/17 07:15 89 16 Room Air 21 04/27/17 04:00 97.5 87 20 120/58 90 Room Air 04/27/17 04:00 90 Room Air 04/27/17 00:02 97.5 66 19 110/90 94 Room Air 04/27/17 00:02 94 Room Air 04/26/17 20:00 92 Room Air 04/26/17 20:00 97.2 61 20 114/60 92 Room Air 04/26/17 19:49 97 16 Room Air 21 04/26/17 13:08 81 18 98 Room Air 21 04/26/17 13:04 21 04/26/17 13:04 76 16 96 Room Air 21 Intake and Output 04/26/17 04/27/17 19:00 07:00 Intake Total 240 ml Balance 240 ml Intake Oral 240 ml # Voids 1 4 Objective General Appearance: no acute distress, other - bedridden cachetic male in NAD, awake, responsive HEENT: normocephalic, atraumatic Respiratory/Chest: lungs clear - with moderate air exchange Cardiovascular: normal rate, regular rhythm, no gallop/murmur Abdomen: normal bowel sounds, soft, non tender Extremities: no edema, pedal pulses normal Neurologic/Psychiatric: abnormal gait, alert, responsive Musculoskeletal: atrophy - BLE Laboratory Tests 04/27/17 05:05: White Blood Count 10.1, Red Blood Count 3.38L, Hemoglobin 8.0L, Hematocrit 26.3L , Mean Corpuscular Volume 78L, Mean Corpuscular Hemoglobin 23.6L, Mean Corpuscular Hemoglobin Concent 30.4L, Red Cell Distribution Width 15.8H, Platelet Count 304, Mean Platelet Volume 7.3, Neutrophils (%) (Auto) 64.4, Lymphocytes (%) (Auto) 13.6L, Monocytes (%) (Auto) 10.7H, Eosinophils (%) (Auto ) 11.0H, Basophils (%) (Auto) 0.3, Sodium Level 143, Potassium Level 4.1, Chloride Level 106, Carbon Dioxide Level 29, Anion Gap 8, Blood Urea Nitrogen 5L , Creatinine 0.5L, Estimat Glomerular Filtration Rate , Glucose Level 146H, Calcium Level 8.4L, Magnesium Level 1.7L Eun Turner NP ([place]anchtein) Apr 27, 2017 12:42
--- NOTE | 2017-04-29 10:02 | Discharge Summary ---
Discharge Summary Hospital Course Date of Admission Apr 23, 2017 at 22:18 Date of Discharge Apr 27, 2017 at 11:20 Admitting Diagnosis SEPSIS,PNEUMONIA Reason for Hospitalization: sepsis, pneumonia HPI 72y/o male with pmh of dementia, CVA w/ R hemiparesis, HTN, HLD who presents with SOB and cough. Pt is poor historian. Per report, pt with SOB, congestion and cough for the past few days. No reports of fevers/chills, chest pain, abd pain, n/v/d/c. Pt also noted to be more lethargic and slightly more confused compared to baseline. In ED, pt noted to have WBC 26K and CXR w/ concern for pneumonia. Pt given IVFs , nebs, ceftriaxone and levaquin. Consultations Pulmonology, Infectious disease, Psychiatry Hospital Course Pt was admitted to [facility] for severe sepsis likely 2/2 pneumonia. He was placed on broad-spectrum antibiotics. Pt also with AMS w/ hallucinations and paranoia, likely toxic metabolic encephalopathy and delirium in setting of sepsis. He was seen by psychiatry and meds optimized. Pt's symptoms improve. He was transitioned to augmentin and doxycycline to complete course of antibiotics on discharge. Discharge physical exam: General: alert, cooperative, no distress, appears stated age, thin Head: normocephalic, without obvious abnormality, atraumatic Eyes: conjunctivae/corneas clear. PERRL, EOM's intact Throat: lips, mucosa, and tongue normal. MMM Neck: supple, symmetrical, trachea midline, and no JVD Lungs: clear to auscultation bilaterally Heart: regular rate and rhythm, S1, S2 normal, no murmur, click, rub or gallop Abdomen: soft, non-tender, non-distended, bowel sounds normal Extremities: extremities normal, atraumatic, no cyanosis or edema Pulses: 2+ and symmetric Skin: skin color, texture, turgor normal; no rashes or lesions Neurologic: grossly normal, no focal deficits Discharge diagnoses: (1) Severe sepsis ICD Codes: A41.9 - Sepsis, unspecified organism; R65.20 - Severe sepsis without septic shock SNOMED: 05699658 (2) HCAP (healthcare-associated pneumonia) ICD Codes: J18.9 - Pneumonia, unspecified organism SNOMED: 721228757 (3) Lactic acidosis ICD Codes: E87.2 - Acidosis SNOMED: 73120405 (4) Toxic metabolic encephalopathy ICD Codes: G92 - Toxic encephalopathy SNOMED: 931781718 (5) Dementia ICD Codes: F03.90 - Unspecified dementia without behavioral disturbance SNOMED: 89467728 Qualifiers: Qualified Codes: F03.90 - Unspecified dementia without behavioral disturbance (6) Status post CVA ICD Codes: Z86.73 - Personal history of transient ischemic attack (TIA), and cerebral infarction without residual deficits SNOMED: 735488523 (7) HTN (hypertension) ICD Codes: I10 - Essential (primary) hypertension SNOMED: 98212734 (8) HLD (hyperlipidemia) ICD Codes: E78.5 - Hyperlipidemia, unspecified SNOMED: 53494876 (9) Severe protein-calorie malnutrition ICD Codes: E43 - Unspecified severe protein-calorie malnutrition SNOMED: 252546755 (10) Hyponatremia ICD Codes: E87.1 - Hypo-osmolality and hyponatremia Discharge Medications New Medications: Ferrous Sulfate (Ferrous Sulfate) 325 Mg Tablet.dr 325 MG ORAL BID for 30 Days, #60 TAB 0 Refills Amoxicillin/Potassium Clav 875-125 Mg Tab* (Amox Tr-K Clv 875-125 Mg Tab*) 1 Each Tablet 875 MG ORAL EVERY 12 HOURS for 6 Days, #12 TAB Doxycycline Hyclate (Doxycycline Hyclate) 100 Mg Capsule 100 MG ORAL EVERY 12 HOURS for 6 Days, #12 CAP Multivitamin With Minerals (Multivitamins With Minerals*) 1 Each Tablet 1 EA ORAL DAILY for 30 Days, TAB Risperidone* (Risperdal*) 2 Mg Tablet 2 MG ORAL BEDTIME for 30 Days, #30 TAB Continued Medications: Acetaminophen* (Acetaminophen 325MG Tablet*) 325 Mg Tablet 650 MG ORAL Q6H PRN for For Pain, TAB Ascorbic Acid* (Vitamin C*) 500 Mg Tablet 500 MG ORAL DAILY, #30 TAB 0 Refills Aspirin* (Aspirin*) 81 Mg Tab.chew 81 MG ORAL DAILY, TAB Baclofen* (Baclofen*) 10 Mg Tablet 10 MG ORAL THREE TIMES A DAY, TAB Divalproex Sodium* (Depakote Er*) 500 Mg Tab.er.24h 500 MG ORAL EVERY 12 HOURS, TAB Docusate Sodium* (Docusate Sodium*) 100 Mg Capsule 100 MG ORAL TWICE A DAY, CAP Hydrocodone Bit/Acetaminophen 10-325* ([place] 10-325*) 1 Each Tablet 1 TAB ORAL Q6H PRN for For Pain, #10 TAB 0 Refills PRN PAIN Memantine Hcl* (Namenda*) 10 Mg Tablet 10 MG ORAL DAILY, TAB Multivitamin With Minerals (Multivitamins With Minerals*) 1 Each Tablet 1 TAB ORAL DAILY, TAB Pantoprazole* (Pantoprazole*) 40 Mg Tablet.dr 40 MG ORAL DAILY, TAB Pravastatin Sod* (Pravastatin Sod*) 20 Mg Tablet 20 MG ORAL BEDTIME, TAB Zinc Sulfate (Zinc Sulfate*) 220 Mg Capsule 220 MG ORAL DAILY, CAP 0 Refills Discontinued Medications: Amlodipine Besylate* (Amlodipine Besylate*) 5 Mg Tablet 5 MG ORAL DAILY, TAB Cephalexin* (Keflex*) 500 Mg Capsule 500 MG ORAL QID, #28 CAP 0 Refills Mirtazapine* (Mirtazapine*) 15 Mg Tablet 15 MG ORAL BEDTIME, TAB Olanzapine* (Zyprexa*) 5 Mg Tablet 5 MG ORAL QHS, TAB Quetiapine Fumarate* (Seroquel*) 25 Mg Tablet 25 MG ORAL THREE TIMES A DAY, TAB Trazodone* (Trazodone*) 150 Mg Tablet 150 MG ORAL BEDTIME, TAB Discharge Condition Upon Discharge: stable Discharge Disposition Patient was discharged to SNF/Subacute Facility(03) Discharge Diagnoses: Padmini Demarco M.D. Apr 29, 2017 10:02
--- NOTE | 2017-04-29 23:01 | General Progress Note ---
Assessment/Plan Status: stable, progressing Subjective Date patient seen: Apr 28, 2017 Neurologic/Psychiatric: Reports: anxiety, depressed, emotional problems Allergies: Coded Allergies: No Known Allergies (Unverified , 04/23/17) Objective Height (Feet): 5 Height (Inches): 7.00 Weight (Pounds): 92 General Appearance: no apparent distress, alert Neurologic: alert, oriented x 3, responsive, depressed affect Getachew Sagastume M.D. Apr 29, 2017 23:00
== END 2017-04-27 11:20 | DRG 871 ==
LOC: EDBD 19:38 → EMR 20:35 → 2E 22:18 → EDBEDREQ 04-24 01:43 → 4W 04-25 15:48
DX: A41.9 Sepsis, unspecified organism (principal); E43 Unspecified severe protein-calorie malnutrition; L89.210 Pressure ulcer of right hip, unstageable; J18.9 Pneumonia, unspecified organism; G92 Toxic encephalopathy; L89.153 Pressure ulcer of sacral region, stage 3; F03.90 Unspecified dementia, unspecified severity, without behavioral disturbance, psychotic disturbance, mood disturbance, and anxiety; I11.9 Hypertensive heart disease without heart failure; R13.10 Dysphagia, unspecified; E87.1 Hypo-osmolality and hyponatremia; I69.351 Hemiplegia and hemiparesis following cerebral infarction affecting right dominant side; Z68.1 Body mass index [BMI] 19.9 or less, adult; R65.20 Severe sepsis without septic shock; E78.5 Hyperlipidemia, unspecified; R26.2 Difficulty in walking, not elsewhere classified; G89.4 Chronic pain syndrome; K21.9 Gastro-esophageal reflux disease without esophagitis; D50.9 Iron deficiency anemia, unspecified; L89.890 Pressure ulcer of other site, unstageable
CPT/HCPCS: 36415; 71045; 80048; 80053; 81003; 82164; 82270; 82550; 82607; 82728; 82747; 83540; 83550; 83605; 83735; 83880; 84100; 84484; 85007; 85025; 85610; 85651; 85730; 86140; 86710; 86738; 86850; 86900; 86901; 86920; 87040; 87081; 93005; 94640; 94664; 99285; J7620; J8499